=== PATIENT | female | born 1965 | race Caucasian/White ===

== ENCOUNTER → 2019-10-24 10:57 | Outpatient (CLI) | payer OTHER, SELFPAY ==
--- NOTE | ~2019-10-24 | CT_ITS ---
EXAMINATION: CT brain & sinus wo con EXAM DATE: 10/24/2019 11:32 INDICATION: Headache and dizziness, vomiting. Non-Hodgkin's lymphoma. TECHNIQUE: Spiral CT of the head obtained without contrast. Reformatted coronal, sagittal images rev iewed. Spiral CT of the sinuses was acquired in the axial plane. Coronal and sagittal reformatted im ages were also reviewed. The dose-length product (DLP) for this examination was 749.46 mGy-cm. The exposure was tailored according to patient size, and iterative reconstruction (ASIR) was used as kathy tional dose reduction technique. There is no prior study for comparison. FINDINGS: SINUS CT: The sinuses are normally developed. There is large left maxillary sinus mucous retention cyst. The ostiomeatal units are patent. There is no sinus wall thickening. There is mild to mode rate S-shaped nasal septal deviation. The mastoid air cells and middle ears are well aerated. Exte rnal auditory canals are patent. Soft tissue is unremarkable. HEAD CT: There are low-density bilateral extra-axial thin subdural fluid collections, containing mild ly proteinaceous fluid, consistent with subacute to chronic subdural hematomas. This is thicker on th e left side measuring up to 5 mm in thickness. There is mild to moderate cerebral atrophy which is he lping to accommodate the subdural hematomas. No herniation. There is no acute intraparenchymal hemorr karyna. No evidence of intraparenchymal brain mass lesion. No evidence of acute infarction. There is no mass effect or midline shift. There is no obstructive hydrocephalus suspected. There are no whitney rial acute fractures. IMPRESSION: 1. Thin bilateral extra-axial subdural hypodense fluid collections consistent with subacute to chron ic subdural hematomas. 2. Moderate-sized left maxillary sinus mucous retention cyst. No sinus air-fluid levels. I discussed extra-axial fluid collections with GIO Garcia at 10/24/2019 11:49 CDT. Reviewed, dictated and finalized at location B. IMPRESSION: 1. Thin bilateral extra-axial subdural hypodense fluid collections consistent with subacute to chronic subdural hematomas. 2. Moderate-sized left maxillary sinus mucous retention cyst. No sinus air-flu id levels. I discussed extra-axial fluid collections with GIO Garcia at 020 11:49 CDT.
== END ==
PROVIDERS: PCP Internal Medicine; Visit Provider Nurse Practitioner
DX: R51 Headache (principal); R42 Dizziness and giddiness; R11.10 Vomiting, unspecified
CPT/HCPCS: 70450; 70486

== ENCOUNTER 2024-02-13 13:41 | Outpatient (CLI) | payer OTHER, SELFPAY ==
--- NOTE | ~2024-02-13 | XR_ITS ---
XR heel LT min 2V Ordering provider: Lauren Prater, JULIAN History: . Bilateral heel pain . Comparison: None. FINDINGS: BONES: No acute fracture or dislocation. Calcaneus spur. JOINT SPACES: Well maintained. SOFT TISSUES: Normal. IMPRESSION: No acute osseous abnormality. Reviewed, dictated and finalized at location A.
--- NOTE | ~2024-02-13 | XR_ITS ---
XR heel RT min 2V Ordering provider: Lauren Prater, JULIAN History: . Bilateral heel pain . Comparison: None. FINDINGS: BONES: No acute fracture or dislocation. Calcaneal spur. JOINT SPACES: Well maintained. SOFT TISSUES: Normal. IMPRESSION: No acute osseous abnormality. Reviewed, dictated and finalized at location A.
== END 2024-02-13 13:42 ==
PROVIDERS: PCP Physician Assistant; Visit Provider Physician Assistant
DX: M79.671 Pain in right foot (principal); M79.672 Pain in left foot
CPT/HCPCS: 73650

== ENCOUNTER 2024-07-18 15:42 | Outpatient (CLI) | payer OTHER, SELFPAY ==
--- NOTE | ~2024-07-18 | US_ITS ---
RIGHT LOWER EXTREMITY VENOUS ULTRASOUND Ordering provider: Lauren Prater, JULIAN History: . Localized edema . Comparison: None. FINDINGS: --COMMON FEMORAL: Patent and free of thrombus. Normal compressibility, phasic flow and augmentation. --PROXIMAL SUPERFICIAL FEMORAL: Patent and free of thrombus. Normal compressibility, phasic flow and augmentation. --DISTAL SUPERFICIAL FEMORAL: Patent and free of thrombus. Normal compressibility, phasic flow and au gmentation. --POPLITEAL: Patent and free of thrombus. Normal compressibility, phasic flow and augmentation. --POSTERIOR TIBIAL: Patent and free of thrombus. Normal compressibility, phasic flow and augmentation . Great saphenous vein is not compressible. IMPRESSION: No deep vein thrombosis. Great saphenous vein is noncompressible suggestive of thrombosis. Reviewed, dictated and finalized at location A. ERN SCRATCHER
== END 2024-07-18 15:43 | disposition home or self-care (01) ==
LOC: ANHIMG 15:46
PROVIDERS: PCP Physician Assistant; Visit Provider Physician Assistant
DX: R60.0 Localized edema (principal)
CPT/HCPCS: 93971

== ENCOUNTER 2024-08-05 18:07 | Inpatient (IN) | payer OTHER, SELFPAY ==
[2024-08-05] VITALS (24 sets, daily range): BP systolic 57–116; BP diastolic 30–89; PULSE 116–136; RESP 17–37; TEMP 35.9–36.9; O2SAT 68–100
--- NOTE | ~2024-08-05 | US_ITS ---
EXAMINATION: US venous doppler [facility] DATE: 08/06/2024 17:28 INDICATION: Pulmonary embolus TECHNIQUE: Grayscale ultrasound images without and with compression and Doppler ultrasound images of the left lower extremity veins were obtained. Augmentation was deferred. COMPARISON: None. FINDINGS: The visualized portions of left common femoral vein, profunda (deep) femoral vein, femoral vein, popl iteal vein, peroneal veins, posterior tibial veins, and greater saphenous vein outflow are patent. IMPRESSION: 1. No deep venous thrombosis within the left lower extremity, as detailed above. Reviewed, dictated and finalized at location A. LER'S ASSISTANT IMPRESSION: 1. No deep venous thrombosis within the left lower extremity, as detailed aborashel rowell.
--- NOTE | ~2024-08-05 | XR_ITS ---
CHEST RADIOGRAPH CLINICAL HISTORY: Altered mental status, syncope . COMPARISON: None available TECHNIQUE: Single portable view of the chest. FINDINGS The cardiomediastinal silhouette is unremarkable. The lungs are clear. Visualized osseous structures and soft tissues are unremarkable. IMPRESSION: No focal infiltrate or effusion. Reviewed, dictated and finalized at location A. INE INSTALLER
--- NOTE | ~2024-08-05 | CT_ITS ---
History: Syncope PROCEDURE: CT head without contrast. COMPARISON: 10/24/2019 TECHNIQUE: Axial imaging of the head performed from the skull base to the vertex without IV contrast. Sagittal a nd coronal reformations obtained. DLP: 681 mGy-cm FINDINGS: The ventricles are normal in size, shape and position. There is no mass, mass effect or midline shift. There is no abnormal extra-axial fluid collection or intracranial hemorrhage. Visualized paranasal sinuses are clear. The mastoid air cells are well aerated. No acute displaced fractures within the overlying cranium. Impression: No acute intracranial hemorrhage or suspicious mass effect. Reviewed, dictated and finalized at location A. WAY HEAD TENDER Impression: No acute intracranial hemorrhage or suspicious mass effect.
--- NOTE | ~2024-08-05 | CT_ITS ---
EXAMINATION: CTA chest PE abdomen pel DATE: 08/05/2024 20:17 PROCESS DESIGNER INDICATION: Syncope TECHNIQUE: Computed tomographic angiography (CTA) of the chest was performed, along with multiple con tiguous axial images of the abdomen and pelvis with 100 mL Omnipaque-350 intravenous contrast. The do se-length product was 1939.03 mGy-cm. Maximum intensity projection 3D-reconstructions of the aorta an d other arteries were constructed by the technologist on a separate workstation. FINDINGS/OBSERVATIONS: PULMONARY ARTERIES: Multiple filling defects are detected within the bilateral pulmonary arteries. Within the left main pulmonary artery, extending into both the ascending and descending pulmonary art deanna branches. Within the right main pulmonary artery, extending into the ascending, middle and descending pulmonary arteries. THORACIC AORTA: No aneurysmal dilatation or dissection is present. The great vessels are intact LUNGS: Trace right basilar atelectasis. The remainder of the lungs are clear. MEDIASTINUM: No morphologically suspicious or pathologically enlarged lymph nodes are identified with in the mediastinum or bilateral axilla. Extensive supraclavicular lymphadenopathy with infiltration of surrounding soft tissues. BONES OF THE CHEST: No acute fracture. No significant degenerative disease. No lytic or blastic lesions. HEART: Right heart strain is detected with an RV to LV ratio of 1.5. The heart is not enlarged. No pericardial effusion is present. LIVER: Innumerable well-circumscribed areas of fluid attenuation are identified within the liver along with periportal edema. GALLBLADDER AND BILIARY SYSTEM: The gallbladder is distended, without calcified stones PANCREAS: The pancreas enhances homogeneously without ductal dilatation. SPLEEN: The spleen enhances homogeneously and is not enlarged measuring 6 cm in longitudinal dimension. KIDNEYS: The bilateral kidneys enhance symmetrically without hydronephrosis or renal calculi. ADRENAL GLANDS: Unremarkable. GASTROINTESTINAL TRACT: Mural thickening and edema within multiple loops of nondilated small bowel, likely secondary to venou s congestion. APPENDIX: The air-filled appendix is of normal caliber (axial series, images 113-120). VASCULATURE: Left common femoral vein catheter. The right common iliac vein fills via collateralization from the posterior pelvis. The right common femoral vein is enlarged with surrounding inflammatory change, consistent with throm bosis. LYMPH NODES: Bulky pathologically enlarged lymph nodes within the retroperitoneum. Large mass along the right pelvic sidewall correlating to splaying the vasculature, likely the source of venous obstruction within the right lower extremity (and just cranial to the area of prior ultras ound dated 07/18/2024). This mass measures 11 x 7 x 8.2 cm (anterior to posterior x medial to lateral x cranial to caudal dim ension), with central decreased attenuation, likely necrosis. PELVIC STRUCTURES: The bladder is decompressed with a Quinones catheter, limiting its evaluation. The uterus is anteverted and anteflexed. BODY WALL AND MUSCULOSKELETAL: Small fat-containing umbilical hernia. No significant degenerative disease within the lower thoracic or lumbosacral spine. No lytic or blastic lesions. IMPRESSION: Bilateral pulmonary emboli with significant right heart strain. 11 cm likely necrotic mass within the right hemipelvis. Significant retroperitoneal and mesenteric lymphadenopathy. Periportal edema with venous congestion in the mesentery. Innumerable foci of fluid and attenuation within the liver These findings were discussed with RADHA Phan in the ER at 8:20 PM on 08/05/2024. Reviewed, dictated and finalized at location A. ESS DESIGNER
--- NOTE | 2024-08-05 18:17 | ECG_ITS ---
Test Date: 2024-08-05 18:19:45 Measurements Intervals [place] Rate: 125 P: 63 NE: 146 QRS: 95 QRSD: 99 T: 16 QT: 390 QTc: 564 Interpretive Statements SINUS TACHYCARDIA BORDERLINE RIGHT AXIS DEVIATION [QRS AXIS > 90] INCOMPLETE RIGHT BUNDLE BRANCH BLOCK [90+ ms QRS DURATION, TERMINAL R IN V1/V2, 40+ ms S IN I/aVL/V4/V5/V6] SEPTAL MYOCARDIAL INFARCTION , PROBABLY OLD [40+ ms Q WAVE IN V1/V2] ST DEPRESSION, CONSIDER SUBENDOCARDIAL INJURY [0.1+ mV ST DEPRESSION] No previous ECG available for comparison Electronically Signed On 08-06-2024 10:40:37 TRAVEL COORDINATOR by Thomas Mclean M.D.
[2024-08-05] MEDS: SODIUM CHLORIDE 0.9% IV 1,000 ML 999 ML IV CONT ×3 (18:20→20:25)
[2024-08-05 18:48] LABS: Basophils Absolute Auto 0.1 K/mm3 (0.0-0.1); Basophils Percent Auto 0.6 % (0.2-1.2); Eosinophils Percent Auto 0.2 % (0-4.4); Hematocrit 36.7 % (37.0-47.0); Hemoglobin 12.2 g/dL (12.0-15.0); Immature Granulocyte Absolute 0.04 K/mm3 (0.00-0.031); Immature Granulocyte Percent A 0.3 % (0-0.5); Lymphocytes Absolute Auto 4.14 K/mm3 (0.9-3.2); Lymphocytes Percent Auto 32.6 % (18.3-44.2); Mean Corpuscular HGB Conc 33.2 g/dl (32-36); Mean Corpuscular Volume 90.4 fl (80-100); Mean Platelet Volume 10.5 fl (7.4-10.4); Monocytes Absolute Auto 1.1 K/mm3 (0.1-0.6); Monocytes Percent Auto 8.3 % (2.6-8.5); Neutrophils Absolute Auto 7.4 K/mm3 (1.3-6.7); Platelet Count Result 195 k/mm3 (150-375); Red Blood Count 4.06 M/mm3 (4.2-5.4); Red Cell Distribution Width 13.1 % (11.5-14.5); White Blood Count 12.7 K/mm3 (4.5-10.0)
[2024-08-05 18:58] LABS: INR 1.5
[2024-08-05 18:59] LABS: Partial Thromboplastin Time 37.9 Seconds (22.3-36.8)
[2024-08-05 19:01] LABS: Alanine Aminotransferase 48 U/L (6-35); Albumin Level 3.6 g/dL (3.5-5.1); Alkaline Phosphatase 71 U/L (38-126); Anion Gap 16 mmol/L (4-12); Aspartate Amino Transferase 88 U/L (14-36); Bilirubin,Total 0.6 mg/dL (0.2-1.3); Blood Urea Nitrogen 9 mg/dL (7-17); Calcium 9.5 mg/dL (8.4-10.2); Carbon Dioxide 21 mmol/L (22-30); Chloride 103 mmol/L (98-107); Estimated Glomerular Filt Rate 55; Glucose 225 mg/dL (65-110); Lipase 259 U/L (23-300); Potassium 2.8 mmol/L (3.4-5.0); Sodium 140 mmol/L (137-145)
[2024-08-05 19:02] LABS: Lactic Acid Reflex 7.1 mmol/L (0.7-2.0)
--- NOTE | 2024-08-05 19:10 | ED_ITS ---
HPI - General Adult General Chief complaint: Syncope Stated complaint: syncope Time Seen by Provider: 08/05/24 18:07 History of Present Illness HPI narrative: Patient is a 59-year-old female who presents emergency department with chief complaint of syncopal episode. The patient apparently was at home and was going to the bathroom had a syncopal episode was having bouts of diarrhea and EMS was called. The patient had another syncopal episode was hypotensive upon arrival the emergency department the patient was profoundly hypotensive and was started on fluid resuscitation. The patient reports that she has history of a B-cell lymphoma and is scheduled to have a biopsy of [place] later this week Related Data Home Medications ?Medication ?Instructions ?Recorded ?Confirmed ?Last Taken ?Type ascorbate calcium (vitamin C) 500 500 mg PO DAILY 04/07/21 04/07/21 Unknown History mg tablet cholecalciferol (vitamin D3) 125 125 mcg PO DAILY 04/07/21 04/07/21 Unknown History mcg (5,000 unit) capsule turmeric 100 mg-beatriz 150 cap PO 04/07/21 04/07/21 Unknown History mg-olive 50 mg-oreg 150 mg-capryl capsule Allergies Allergy/AdvReac Type Severity Reaction Status Date / Time Penicillins Allergy Mild Rash Verified 04/07/21 07:22 gluten AdvReac lowers iron Verified 04/07/21 07:22 Review of Systems 2 Review of Systems: A 10 system review of systems was completed on the patient and is negative except for what is stated in the HPI. Nursing and ancillary documentation was reviewed. [facility] Family History Family History Mother Family history of diabetes mellitus in first degree relative Patient's mother is in good health Father Family history of diabetes mellitus in first degree relative Other Family history of coronary artery disease Social History Social History Smoking status: Never smoker Second hand tobacco smoke exposure: No Alcohol intake: current Drinks per week: 2 Substance use: never Exam 2 Narrative: GENERAL: Ill-appearing, well-nourished, and in severe acute distress. HEAD: Normocephalic, atraumatic. EYES: PERRLA and EOMI. ENT: Nares clear, no rhinorrhea or epistaxis. Mucous membranes moist. Lips are dusky NECK: Supple. CHEST: Clear to auscultation. No respiratory distress. HEART: Tachycardic rate and regular rhythm. No murmur heard. Normal peripheral pulses. ABDOMEN: Soft, nontender, nondistended, normal active bowel sounds. EXTREMITIES: Normal range of motion. No edema. SKIN: Warm, dry, no rash. NEURO: No focal deficits. Alert and oriented x3. Slow to respond PSYCH: Normal mood and affect. Course Vital Signs Vital signs: Vital Signs Temperature 36.0 C L 08/05/24 18:00 Pulse Rate 136 H 08/05/24 18:00 Respiratory Rate 28 H 08/05/24 18:00 Blood Pressure 57/30 L 08/05/24 18:00 Pulse Oximetry 86 L 08/05/24 18:00 Oxygen Delivery Room Air 08/05/24 18:00 Temperature 37.7 C H 08/06/24 11:48 Pulse Rate 97 08/06/24 11:48 Respiratory Rate 16 08/06/24 11:48 Blood Pressure 113/83 08/06/24 11:48 Pulse Oximetry 97 08/06/24 11:48 Oxygen Delivery Nasal Cannula 08/05/24 18:20 Oxygen Flow Rate 3 08/05/24 18:20 Procedures Central Line Placement Left Femoral: Central Line Date: 08/05/24 Central Line Time: 19:11 Performed Emergently - Given emergent patient condition, temporal constraints may have precluded informed consent.: Yes Time Out Performed: Yes Medical Decision Making MDM Narrative Medical decision making narrative: Differential diagnosis includes GI bleed, syncope, dehydration, pulmonary embolism The patient was initially hypotensive and tachycardic. Fluid resuscitation was initiated the patient received 30 per kilos of the normal saline boluses the patient was still hypotensive a central line was placed in the left femoral emergently with verbal permission from the patient. Levophed was started. Patient was tachycardic and complaining of back pain CTA of the chest with abdomen pelvis CT was obtained that showed evidence of pulmonary emboli with right heart strain. The patient did have a slightly elevated troponin anticoagulant therapy was initiated. Patient is followed at [facility] case was discussed with the [facility] transfer center currently there are no beds available at [facility] the patient is on the list for an ICU bed and they will be continuing work for placement. Patient's vitals have improved significantly patient has a blood pressure 116/81 heart rate of 117 Vital Signs Vital Signs: Vital Signs Temperature 36.0 C L 08/05/24 18:00 Pulse Rate 136 H 08/05/24 18:00 Respiratory Rate 28 H 08/05/24 18:00 Blood Pressure 57/30 L 08/05/24 18:00 Pulse Oximetry 86 L 08/05/24 18:00 Oxygen Delivery Room Air 08/05/24 18:00 Temperature 37.7 C H 08/06/24 11:48 Pulse Rate 97 08/06/24 11:48 Respiratory Rate 16 08/06/24 11:48 Blood Pressure 113/83 08/06/24 11:48 Pulse Oximetry 97 08/06/24 11:48 Oxygen Delivery Nasal Cannula 08/05/24 18:20 Oxygen Flow Rate 3 08/05/24 18:20 Lab Data 08/06/24 05:30 08/05/24 18:39 Labs: Lab Results 08/05/24 08/05/24 08/05/24 Range/Units 18:35 18:39 19:05 WBC 12.7 H (4.5-10.0) K/mm3 RBC 4.06 L (4.2-5.4) M/mm3 Hgb 12.2 (12.0-15.0) g/dL Hct 36.7 L (37.0-47.0) % MCV 90.4 (80-100) fl MCH 30.0 (26-34) pg MCHC 33.2 (32-36) g/dl RDW 13.1 (11.5-14.5) % Plt Count 195 (150-375) k/mm3 MPV 10.5 H (7.4-10.4) fl Immature Gran % (Auto) 0.3 (0-0.5) % Neut % (Auto) 58.0 (45.5-73.1) % Lymph % (Auto) 32.6 (18.3-44.2) % [place] % (Auto) 8.3 (2.6-8.5) % Eos % (Auto) 0.2 (0-4.4) % Baso % (Auto) 0.6 (0.2-1.2) % Lymph # (Auto) 4.14 H (0.9-3.2) K/mm3 [place] # (Auto) 1.1 H (0.1-0.6) K/mm3 Eos # (Auto) 0.0 (0-0.3) K/mm3 Baso # (Auto) 0.1 (0.0-0.1) K/mm3 Abs Immat Gran (auto) 0.04 H (0.00-0.031) K/mm3 Absolute Neuts (auto) 7.4 H (1.3-6.7) K/mm3 Absolute Nucleated RBC 0.000 (0.0-0.012) K/mm3 Total Counted Neutrophils % (Manual) (46-73) % Band Neutrophils % (0-6) % Lymphocytes % (Manual) (18-44) % Monocytes % (Manual) (3-9) % Nucleated RBC % 0.0 (0.0-0.2) % Abs Neuts (Manual) (1.7-7.2) K/mm3 Abs Lymphs (Manual) (1.1-4.5) K/mm3 Abs Monocytes (Manual) (0.1-0.90) K/mm3 Platelet Estimate (Adequate) Schistocytes PT 18.0 H (11.1-14.7) Seconds INR 1.5 APTT 37.9 H (22.3-36.8) Seconds Sodium 140 (137-145) mmol/L Potassium 2.8 L* (3.4-5.0) mmol/L Chloride 103 (98-107) mmol/L Carbon Dioxide 21 L (22-30) mmol/L Anion Gap 16 H (4-12) mmol/L BUN 9 (7-17) mg/dL Creatinine 1.02 H (0.7-1.0) mg/dL Estim Creat Clear Calc Not Reportable Estimated GFR 55 L (59 - ) Glucose 225 H (65-110) mg/dL Lactic Acid 7.1 H* (0.7-2.0) mmol/L Calcium 9.5 (8.4-10.2) mg/dL Magnesium 2.0 (1.6-2.3) mg/dL Total Bilirubin 0.6 (0.2-1.3) mg/dL AST 88 H (14-36) U/L ALT 48 H (6-35) U/L Alkaline Phosphatase 71 (38-126) U/L Troponin I 0.575 H* (0.000-0.034) ng/mL NT-Pro-B Natriuret Pep 640 H (19.9-100) pg/mL Total Protein 6.0 L (6.3-8.2) g/dL Albumin 3.6 (3.5-5.1) g/dL Lipase 259 (23-300) U/L Procalcitonin 0.1 ng/mL Urine Color Yellow (Yellow) Urine Appearance Cloudy H (Clear) Urine pH 7.5 (5.0-9.0) Ur Specific [place] 1.010 (1.001-1.035) Urine Protein 3+ H (Negative) mg/dL Urine Glucose (UA) Negative (Negative) mg/dL Urine Ketones Negative (Negative) mg/dL Ur Blood (Man) Negative (Negative) Urine Nitrate Negative (Negative) Urine Bilirubin Negative (Negative) Urine Urobilinogen 0.2 (<2.0) mg/dL Leukocyte Esterase Rfl Negative (Negative) LORENZO/UL Urine RBC 11-20 H (0-2) /hpf Urine WBC 11-20 H (0-3) /hpf Ur Squamous Epith Cells None seen (Few) /hpf Urine Bacteria Rare /hpf Urine Casts >20 Hyaline Casts Present (None) /lpf Influenza A (RT-PCR) Negative (Negative) Influenza B (RT-PCR) Negative (Negative) RSV (RT-PCR) Negative (Negative) SARS-CoV-2 RNA (RT-PCR) Negative (Negative) Blood Type O Positive Antibody Screen Negative 08/05/24 08/06/24 08/06/24 Range/Units 21:57 03:10 05:30 WBC 17.3 H 11.9 H (4.5-10.0) K/mm3 RBC 4.38 4.19 L (4.2-5.4) M/mm3 Hgb 13.1 12.6 (12.0-15.0) g/dL Hct 39.6 36.9 L (37.0-47.0) % MCV 90.4 88.1 (80-100) fl MCH 29.9 30.1 (26-34) pg MCHC 33.1 34.1 (32-36) g/dl RDW 13.2 13.3 (11.5-14.5) % Plt Count 159 155 (150-375) k/mm3 MPV 9.8 10.0 (7.4-10.4) fl Immature Gran % (Auto) Not Reportable 0.3 (0-0.5) % Neut % (Auto) Not Reportable 82.3 H (45.5-73.1) % Lymph % (Auto) Not Reportable 8.7 L (18.3-44.2) % [place] % (Auto) Not Reportable 8.5 (2.6-8.5) % Eos % (Auto) Not Reportable 0.0 (0-4.4) % Baso % (Auto) Not Reportable 0.2 (0.2-1.2) % Lymph # (Auto) Not Reportable 1.03 (0.9-3.2) K/mm3 [place] # (Auto) Not Reportable 1.0 H (0.1-0.6) K/mm3 Eos # (Auto) Not Reportable 0.0 (0-0.3) K/mm3 Baso # (Auto) Not Reportable 0.0 (0.0-0.1) K/mm3 Abs Immat Gran (auto) Not Reportable 0.04 H (0.00-0.031) K/mm3 Absolute Neuts (auto) Not Reportable 9.8 H (1.3-6.7) K/mm3 Absolute Nucleated RBC Not Reportable 0.000 (0.0-0.012) K/mm3 Total Counted 100 Neutrophils % (Manual) 75 H (46-73) % Band Neutrophils % 12 H (0-6) % Lymphocytes % (Manual) 9.0 L (18-44) % Monocytes % (Manual) 4 (3-9) % Nucleated RBC % Not Reportable 0.0 (0.0-0.2) % Abs Neuts (Manual) 15.05 H (1.7-7.2) K/mm3 Abs Lymphs (Manual) 1.55 (1.1-4.5) K/mm3 Abs Monocytes (Manual) 0.69 (0.1-0.90) K/mm3 Platelet Estimate Adequate (Adequate) Schistocytes None seen PT 18.7 H (11.1-14.7) Seconds INR 1.5 APTT > 200.0 H* > 200.0 H* (22.3-36.8) Seconds Sodium (137-145) mmol/L Potassium (3.4-5.0) mmol/L Chloride (98-107) mmol/L Carbon Dioxide (22-30) mmol/L Anion Gap (4-12) mmol/L BUN (7-17) mg/dL Creatinine (0.7-1.0) mg/dL Estim Creat Clear Calc Estimated GFR (59 - ) Glucose (65-110) mg/dL Lactic Acid 5.1 H* (0.7-2.0) mmol/L Calcium (8.4-10.2) mg/dL Magnesium (1.6-2.3) mg/dL Total Bilirubin (0.2-1.3) mg/dL AST (14-36) U/L ALT (6-35) U/L Alkaline Phosphatase (38-126) U/L Troponin I 0.743 H* D (0.000-0.034) ng/mL NT-Pro-B Natriuret Pep (19.9-100) pg/mL Total Protein (6.3-8.2) g/dL Albumin (3.5-5.1) g/dL Lipase (23-300) U/L Procalcitonin ng/mL Urine Color (Yellow) Urine Appearance (Clear) Urine pH (5.0-9.0) Ur Specific [place] (1.001-1.035) Urine Protein (Negative) mg/dL Urine Glucose (UA) (Negative) mg/dL Urine Ketones (Negative) mg/dL Ur Blood (Man) (Negative) Urine Nitrate (Negative) Urine Bilirubin (Negative) Urine Urobilinogen (<2.0) mg/dL Leukocyte Esterase Rfl (Negative) LORENZO/UL Urine RBC (0-2) /hpf Urine WBC (0-3) /hpf Ur Squamous Epith Cells (Few) /hpf Urine Bacteria /hpf Urine Casts Hyaline Casts (None) /lpf Influenza A (RT-PCR) (Negative) Influenza B (RT-PCR) (Negative) RSV (RT-PCR) (Negative) SARS-CoV-2 RNA (RT-PCR) (Negative) Blood Type Antibody Screen 08/06/24 Range/Units 10:50 WBC (4.5-10.0) K/mm3 RBC (4.2-5.4) M/mm3 Hgb (12.0-15.0) g/dL Hct (37.0-47.0) % MCV (80-100) fl MCH (26-34) pg MCHC (32-36) g/dl RDW (11.5-14.5) % Plt Count (150-375) k/mm3 MPV (7.4-10.4) fl Immature Gran % (Auto) (0-0.5) % Neut % (Auto) (45.5-73.1) % Lymph % (Auto) (18.3-44.2) % [place] % (Auto) (2.6-8.5) % Eos % (Auto) (0-4.4) % Baso % (Auto) (0.2-1.2) % Lymph # (Auto) (0.9-3.2) K/mm3 [place] # (Auto) (0.1-0.6) K/mm3 Eos # (Auto) (0-0.3) K/mm3 Baso # (Auto) (0.0-0.1) K/mm3 Abs Immat Gran (auto) (0.00-0.031) K/mm3 Absolute Neuts (auto) (1.3-6.7) K/mm3 Absolute Nucleated RBC (0.0-0.012) K/mm3 Total Counted Neutrophils % (Manual) (46-73) % Band Neutrophils % (0-6) % Lymphocytes % (Manual) (18-44) % Monocytes % (Manual) (3-9) % Nucleated RBC % (0.0-0.2) % Abs Neuts (Manual) (1.7-7.2) K/mm3 Abs Lymphs (Manual) (1.1-4.5) K/mm3 Abs Monocytes (Manual) (0.1-0.90) K/mm3 Platelet Estimate (Adequate) Schistocytes PT (11.1-14.7) Seconds INR APTT Pending (22.3-36.8) Seconds Sodium (137-145) mmol/L Potassium (3.4-5.0) mmol/L Chloride (98-107) mmol/L Carbon Dioxide (22-30) mmol/L Anion Gap (4-12) mmol/L BUN (7-17) mg/dL Creatinine (0.7-1.0) mg/dL Estim Creat Clear Calc Estimated GFR (59 - ) Glucose (65-110) mg/dL Lactic Acid (0.7-2.0) mmol/L Calcium (8.4-10.2) mg/dL Magnesium (1.6-2.3) mg/dL Total Bilirubin (0.2-1.3) mg/dL AST (14-36) U/L ALT (6-35) U/L Alkaline Phosphatase (38-126) U/L Troponin I (0.000-0.034) ng/mL NT-Pro-B Natriuret Pep (19.9-100) pg/mL Total Protein (6.3-8.2) g/dL Albumin (3.5-5.1) g/dL Lipase (23-300) U/L Procalcitonin ng/mL Urine Color (Yellow) Urine Appearance (Clear) Urine pH (5.0-9.0) Ur Specific [place] (1.001-1.035) Urine Protein (Negative) mg/dL Urine Glucose (UA) (Negative) mg/dL Urine Ketones (Negative) mg/dL Ur Blood (Man) (Negative) Urine Nitrate (Negative) Urine Bilirubin (Negative) Urine Urobilinogen (<2.0) mg/dL Leukocyte Esterase Rfl (Negative) LORENZO/UL Urine RBC (0-2) /hpf Urine WBC (0-3) /hpf Ur Squamous Epith Cells (Few) /hpf Urine Bacteria /hpf Urine Casts Hyaline Casts (None) /lpf Influenza A (RT-PCR) (Negative) Influenza B (RT-PCR) (Negative) RSV (RT-PCR) (Negative) SARS-CoV-2 RNA (RT-PCR) (Negative) Blood Type Antibody Screen Critical Care Time Critical Care Time Critical Care Time: Yes Total Critical Care Time: 75 Discharge Plan Discharge Clinical Impression: Pulmonary embolism, bilateral, Acute cor pulmonale, Elevated troponin, Syncope Patient Disposition: Acute Care Hospital Condition: Guarded Prognosis Patient Language: Croatian Prescriptions: No Action [id number]-sett-frtxl-oreg-capry 100 mg-150 mg- 50 mg-150 mg capsule PO ascorbate calcium (vitamin C) 500 mg tablet 500 mg PO DAILY cholecalciferol (vitamin D3) 125 mcg (5,000 unit) capsule 125 mcg PO DAILY doxycycline hyclate 100 mg capsule 100 mg PO BID Qty: 20 0RF Follow-up/Referrals: Menossi,JULIAN Aguilar [Primary Care Provider] -
[2024-08-05 19:14] LABS: NT Pro B Type Natriuretic Pept 640 pg/mL (19.9-100); Troponin I 0.575 ng/mL (0.000-0.034)
[2024-08-05 19:24] LABS: Influenza A QL RT-PCR Negative (Negative); Influenza B QL RT-PCR Negative (Negative); RSV RNA, RT-PCR Negative (Negative); SARS-CoV-2 RNA PCR Negative (Negative)
[2024-08-05] MEDS: NOREPINEPHRINE 8 MG/D5W 250 ML 8 MG/250 ML BAG 9.38 MG IV CONT (19:25)
[2024-08-05 19:29] LABS: Procalcitonin 0.1 ng/mL
[2024-08-05 19:39] LABS: Add Urine Microscopic? YES; Appearance Urine Cloudy (Clear); Bacteria Urine Rare /hpf; Bilirubin Urine Negative (Negative); Blood Urine Negative (Negative); Color Urine Yellow (Yellow); Glucose Urine UA Negative (Negative); Hyaline Casts Urine Present /lpf; Ketones Urine Negative (Negative); Leukocyte Esterase Ur Negative LEU/UL (Negative); Nitrate Urine Negative (Negative); Non Pathogenic Casts >20; Protein Urine 3+ mg/dL (Negative); Squamous Epithelial Cell Urine None Seen /hpf (Few); Urobilinogen Urine 0.2 mg/dL (<2.0); pH Urine 7.5 (5.0-9.0)
[2024-08-05] MEDS: ONDANSETRON INJ 4 MG/2 ML VIAL IV PUSH (21:16)
[2024-08-05] MEDS: HEPARIN SODIUM 5,000 UNITS/ML VIAL 6000 UNITS IV PUSH (21:16)
[2024-08-05] MEDS: HEPARIN SOD/D5W 100 UNITS/ML 25,000 UNITS/250 ML BAG 13 UNITS IV CONT (21:16)
[2024-08-05] MEDS: KCL 20 MEQ/SW 100 ML 100 ML 50 MEQ IVPB (21:23)
[2024-08-05 21:45] LABS: Reflex Lactic Acid Yes or No Add Lactic
[2024-08-05 22:03] LABS: Hematocrit 39.6 % (37.0-47.0); Hemoglobin 13.1 g/dL (12.0-15.0); Mean Corpuscular HGB Conc 33.1 g/dl (32-36); Mean Corpuscular Hemoglobin 29.9 pg (26-34); Mean Corpuscular Volume 90.4 fl (80-100); Mean Platelet Volume 9.8 fl (7.4-10.4); Platelet Count Result 159 k/mm3 (150-375); Red Blood Count 4.38 M/mm3 (4.2-5.4); Red Cell Distribution Width 13.2 % (11.5-14.5); White Blood Count 17.3 K/mm3 (4.5-10.0)
[2024-08-05 22:14] LABS: INR 1.5; Prothrombin Time 18.7 Seconds (11.1-14.7)
[2024-08-05 22:19] LABS: Band Neutrophils Percent 12 % (0-6); Lactic Acid 5.1 mmol/L (0.7-2.0); Lymphocytes Absolute Manual 1.55 K/mm3 (1.1-4.5); Monocytes Absolute Manual 0.69 K/mm3 (0.1-0.90); Monocytes Percent Manual 4 % (3-9); Neutrophils Absolute Manual 15.05 K/mm3 (1.7-7.2); Neutrophils Percent Manual 75 % (46-73); Platelet Estimate Adequate (Adequate); Schistocytes None Seen; Total Cells Counted 100
[2024-08-05 22:34] LABS: Troponin I 0.743 ng/mL (0.000-0.034)
[2024-08-05 23:31] LABS: Partial Thromboplastin Time > 200.0 Seconds (22.3-36.8)
[2024-08-06] VITALS (42 sets, daily range): BP systolic 98–139; BP diastolic 75–102; PULSE 91–110; RESP 14–27; TEMP 37.4–37.9; O2SAT 96–100; BMI 27.4
[2024-08-06 03:47] LABS: Partial Thromboplastin Time > 200.0 Seconds (22.3-36.8)
--- NOTE | 2024-08-06 04:04 | PC.NURSE ---
0350: Lab called patient companion with critical result of pt PTT blood work. Pt ptt was greater than 200 so this RN followed titration protocols and held inufsion at this time and will resume in 1 hr and decrease rate by 2.
[2024-08-06 05:37] LABS: Basophils Percent Auto 0.2 % (0.2-1.2); Hematocrit 36.9 % (37.0-47.0); Hemoglobin 12.6 g/dL (12.0-15.0); Immature Granulocyte Absolute 0.04 K/mm3 (0.00-0.031); Immature Granulocyte Percent A 0.3 % (0-0.5); Lymphocytes Absolute Auto 1.03 K/mm3 (0.9-3.2); Lymphocytes Percent Auto 8.7 % (18.3-44.2); Mean Corpuscular HGB Conc 34.1 g/dl (32-36); Mean Corpuscular Hemoglobin 30.1 pg (26-34); Mean Corpuscular Volume 88.1 fl (80-100); Monocytes Percent Auto 8.5 % (2.6-8.5); Neutrophils Absolute Auto 9.8 K/mm3 (1.3-6.7); Neutrophils Percent Auto 82.3 % (45.5-73.1); Platelet Count Result 155 k/mm3 (150-375); Red Blood Count 4.19 M/mm3 (4.2-5.4); Red Cell Distribution Width 13.3 % (11.5-14.5); White Blood Count 11.9 K/mm3 (4.5-10.0)
--- NOTE | 2024-08-06 08:39 | PC.NURSE ---
spoke to transfer center, no immediate beds available. noted fever in VS obtained order for PRN Tylenol
[2024-08-06] MEDS: ACETAMINOPHEN 325 MG TABLET 650 MG PO ×2 (09:04→15:11)
--- NOTE | 2024-08-06 09:42 | PC.NURSE ---
Dr. Fuentes made aware of pt's BP of 130/94. per Dr. Fuentes, discontinued Norepinephrine drip. NOBLE.
[2024-08-06 12:16] LABS: Partial Thromboplastin Time 180.1 Seconds (22.3-36.8)
--- NOTE | 2024-08-06 14:29 | ECHO_ITS ---
Patient Info Name: Tiffanie Guardado Age: 59 years : 1965 Gender: Female Ht: 68 in Wt: 201 lbs BSA: 2.12 m2 HR: 96 bpm BP: 112 / 76 mmHg Heart Rhythm: Sinus Rhythm Technical Quality: Fair Exam Date: 08/06/2024 3:49 PM Exam Location: Echo Lab Patient Status: Inpatient Admit Date: 08/06/2024 Staff Ordering Physician: Jaspal Marshall MD Director Of Publications: Yasmin Rinaldi RDCS Attending Provider: Steffi Horvath MD Referring Physician: Joanna HAWKINS; Exam Type: CA echo doppler color flow Study Info Indications - Right heart strain Complete two-dimensional, color flow and Doppler transthoracic echocardiogram is performed. Summary 1. Complete two-dimensional, color flow and Doppler transthoracic echocardiogram is performed. 2. Normal left ventricular size with vigorous systolic function. 3. Small amount of tricuspid regurgitation otherwise no significant valvular disease. 4. Mild septal flattening in the short axis view. 5. [id number] right ventricular enlargement with reduced systolic function. 6. TR jet estimates RV systolic pressure at 37 mmHg. Left Ventricle Left ventricular chamber dimension is normal. Left ventricular systolic function is normal, estimated at 65-70%. The left ventricular diastolic function is normal. Right Ventricle Right ventricular chamber dimension is mildly enlarged. Right ventricular systolic function is reduced. Left Atria Left atrial chamber dimension is normal. Right Atria Right atrial chamber dimension is mildly enlarged. Aortic Valve The aortic valve is normal. Pulmonic Valve The pulmonic valve is normal. Mitral Valve The mitral valve has normal leaflets. Tricuspid Valve The tricuspid valve leaflets are normal. There is mild tricuspid valve regurgitation. Mild pulmonary hypertension, estimated pulmonary arterial systolic pressure is 37 mmHg. Pericardium/Pleural The pericardium appears normal. Aorta The aortic root size at the sinus of Valsalva is normal. Left Ventricular Outflow Tract Name Value Normal LVOT 2D LVOT Diameter 2.0 cm LVOT Doppler LVOT Peak Gradient 3 mmHg LVOT Mean Gradient 2 mmHg LVOT VTI 11 cm LVOT VTI/AV VTI Ratio 0.8 LVOT Stroke Volume 33 ml LVOT CO 3.1 l/min LVOT CI 1.5 l/min/m2 Pulmonic Valve Name Value Normal RVOT Doppler RVOT Peak Gradient 1 mmHg PV Doppler PV Peak Gradient 3 mmHg Mitral Valve Name Value Normal MV Doppler MV Decel [place] 234 cm/s2 MV PHT 59 ms MV Area (PHT) 3.7 cm2 4.0-5.0 MV Diastolic Function MV E Peak Velocity 48 cm/s MV A Peak Velocity 62 cm/s MV E/A 0.8 MV Decel Time 205 ms MV Annular TDI MV E/e' (Septal) 5.5 <=8.0 MV E/e' (Lateral) 5.8 <=8.0 MV E/e' (Average) 5.7 Tricuspid Valve Name Value Normal TV Regurgitation Doppler TR Peak Velocity 260 cm/s TR Peak Gradient 27 mmHg Estimated PAP/RSVP RA Pressure 10 mmHg <=5 PA Systolic Pressure 37 mmHg <36 RV Systolic Pressure 37 mmHg <36 Aorta Name Value Normal Ascending Aorta Ao Root Diameter (MM) 2.7 cm Ao Root Diam Index (MM) 1.3 cm/m2 Aortic Valve Name Value Normal AV Doppler AV Peak Velocity 118 cm/s AV Peak Gradient 6 mmHg AV Mean Gradient 3 mmHg AV VTI 14 cm AV Area (Cont Eq VTI) 2.3 cm2 >=3.0 AV Area (Cont Eq Lance) 2.3 cm2 AV Regurgitation 2D LVOT Area 3.0 cm2 Ventricles Name Value Normal LV Dimensions 2D/MM IVS Diastolic Thickness (2D) 1.2 cm 0.6-1.0 LVID Diastole (2D) 3.5 cm 3.8-5.2 LVIW Diastolic Thickness (2D) 1.0 cm 0.6-0.9 LVID Systole (2D) 2.1 cm 2.2-3.5 LVOT Diameter 2.0 cm LV Mass (2D Cubed) 115.02 g 67.00-162.00 LV Mass Index (2D Cubed) 54 g/m2 43-95 Relative Wall Thickness (2D) 0.58 LV Fractional Shortening/Ejection Fraction 2D/MM LV Fractional Shortening (2D) 39 % 27-45 LV EF (2D Teicholz) 71 % 54-74 LV Diastolic Volume (4C MOD) 41 ml LV EF (4C MOD) 69 % LV Diastolic Volume (2C MOD) 23 ml LV EF (2C MOD) 67 % LV Diastolic Volume (BP MOD) 31 ml 46-106 LV Diastolic Volume Index (BP MOD) 15 ml/m2 29-61 LV Systolic Volume (BP MOD) 11 ml 14-42 LV Systolic Volume Index (BP MOD) 5 ml/m2 8-24 LV EF (BP MOD) 66 % 54-74 LV Diastolic Length (4C) 7.2 cm LV Systolic Length (4C) 6.1 cm LV Stroke Volume (4C MOD) 28 ml Atria Name Value Normal LA Dimensions LA Dimension (MM) 2.7 cm 2.7-3.8 LA Volume (4C A-L) 12 ml LA Volume (BP A-L) 17 ml RA Dimensions RA Area (4C) 16.7 cm2 <=18.0 Report Signatures
--- NOTE | 2024-08-06 15:00 | P.HP_ITS ---
H&P: HPI History of Present Illness Date/Time: 08/06/24 15:00 Chief Complaint: Syncope Narrative: 59 y/o F presents here with syncope with PMH of B-cell lymphoma (2017, [place] in [place]). The patient presents here from home via EMS for further evaluation of syncope. The patient presented to the emergency department on 08/05/2024. The patient had 3 episodes of lightheadedness and shortness of breath. She initially contributed symptoms to dehydration and lack of food. She had been fasting for a few days, would go 24-36 hours and would then eat a small meal and repeat the cycle. Fast was an attempt to detox. Patient used the restroom. When she stood up she became dizzy and lightheaded. Patient then had a syncopal episode. Patient's heard a loud thump and upon his arrival she was still unco nscious. He reports that she tried to wake up but would only have brief periods of consciousness. He estimates this lasted for approximately 30 minutes. Post- syncope she had an episode of nausea and vomiting x1. EMS was called by the patient's . The patient had a 2nd syncopal episode upon arrival to the emergency department. She was found to be profoundly hypotensive, 57/30. Patient reports she has had 3 flights in June. After these flights she noted her right lower extremity was slightly swollen. Denies tobacco use, hormone use, control, or recent surgeries. No previously known cancer to patient beyond her history of lymphoma. Currently following at [facility]. She was aware she had a mass in her pelvis and had previously undergone a biopsy that was inconclusive. Patient was scheduled to have an outpatient biopsy today, however due to current admission she was unable to. The patient is currently post-menopausal, denies any abnormal vaginal bleeding. Denies abdominal pain, unintentional weight loss, or night sweats. She reports family history of cancer: mother had thyroid cancer, father had colon cancer. Initial VS at presentation: 96.8? F, HR 136, R 28, 57/30, and 86% on room air. Now 98% on 3L NC. ED workup showed: WBC 12.7, no anemia, INR 1.5, PTT 37.9, lactic 7.1 (repeat 5.1), creatinine 1.02 and GFR 55 (no previous available for comparison), BNP 640, initial troponin 0.575 (repeat 0.743), AST 88, ALT 48, potassium 2.8. UA was cloudy with 3+ protein, 11-20 RBC, 11-20 WBC, no epithelial cells, rare bacteria. Viral PCR negative. CXR showed no focal infiltrate or effusion. Head CT showed no acute intracranial hemorrhage or suspicious mass effect. CTA of the chest/abdomen/pelvis showed bilateral pulmonary emboli with significant right heart strain, 11 cm likely necrotic mass within the right hemipelvis, significant retroperitoneal and mesenteric lymphadenopathy, periportal edema with venous congestion in the mesentery, and no real foci of fluid and attenuation within the liver. US of the RLE showed no DVT, however the great saphenous vein is noncompressible suggestive of thrombosis. [facility] Past Medical History Medical History B-cell lymphoma 2017 Vitamin D deficiency, unspecified Celiac disease Family History Family History Mother Family history of diabetes mellitus in first degree relative Patient's mother is in good health Father Family history of diabetes mellitus in first degree relative Other Family history of coronary artery disease Social History Social History Smoking status: Never smoker Second hand tobacco smoke exposure: No Alcohol intake: current Drinks per week: 2 Substance use: never Substance use type: does not use Do You Feel Safe in your Home?: Yes Lack of Transportation: No Lack of Food: Never True Current Housing: Decline to Answer Concerned About Future Housing: Decline to Answer Difficulty Paying Gas/Electric Bills: Decline to Answer Difficulty Paying for Meds: Decline to Answer Currently Unemployed: Decline to Answer Education: Bachelor's Degree Difficulty w/ Childcare or Family Care: No Spiritual care concerns: No Meds Home Medications and Allergies Home Medications ?Medication ?Instructions ?Recorded ?Confirmed ?Type ascorbate calcium (vitamin C) 500 500 mg PO DAILY 04/07/21 08/06/24 History mg tablet cholecalciferol (vitamin D3) 125 125 mcg PO DAILY 04/07/21 08/06/24 History mcg (5,000 unit) capsule turmeric 100 mg-beatriz 150 cap PO 04/07/21 04/07/21 History mg-olive 50 mg-oreg 150 mg-capryl capsule allopurinol 300 mg tablet mg 08/06/24 History Allergies Allergy/AdvReac Type Severity Reaction Status Date / Time Penicillins Allergy Mild Rash Verified 04/07/21 07:22 gluten AdvReac lowers iron Verified 04/07/21 07:22 Vital Signs Vital Signs - 24 hr 08/05/24 18:00 08/05/24 18:20 08/05/24 18:20 Temperature 96.8 F L Pulse Rate 136 H Respiratory Rate 28 H Blood Pressure 57/30 L Pulse Oximetry 86 L 86 L 90 Oxygen Delivery Room Air Nasal Cannula Nasal Cannula Oxygen Flow Rate 2 3 08/05/24 18:24 08/05/24 18:25 08/05/24 18:30 Temperature Pulse Rate 117 H 119 H 118 H Respiratory Rate 36 H 36 H 35 H Blood Pressure 83/43 L 71/59 L Pulse Oximetry Oxygen Delivery Oxygen Flow Rate 08/05/24 18:31 08/05/24 18:39 08/05/24 18:40 Temperature 96.7 F L Pulse Rate 116 H 119 H 132 H Respiratory Rate 33 H 35 H Blood Pressure 73/30 L Pulse Oximetry Oxygen Delivery Oxygen Flow Rate 08/05/24 18:45 08/05/24 18:46 08/05/24 19:00 Temperature 97.7 F 97.8 F 98.3 F Pulse Rate 119 H 118 H 124 H Respiratory Rate 34 H 32 H 37 H Blood Pressure 87/75 L 84/60 L Pulse Oximetry Oxygen Delivery Oxygen Flow Rate 08/05/24 19:02 08/05/24 19:15 08/05/24 19:16 Temperature 98.3 F 98.0 F 97.9 F Pulse Rate 124 H 123 H 123 H Respiratory Rate 32 H 30 H 25 H Blood Pressure 86/71 L Pulse Oximetry Oxygen Delivery Oxygen Flow Rate 08/05/24 19:25 08/05/24 19:26 08/05/24 19:30 Temperature 97.7 F 97.6 F Pulse Rate 124 H 124 H 125 H Respiratory Rate 32 H 30 H Blood Pressure 86/71 L 86/70 L 81/39 L Pulse Oximetry 68 L Oxygen Delivery Oxygen Flow Rate 08/05/24 20:20 08/05/24 20:34 08/05/24 21:20 Temperature 97.4 F L 97.9 F Pulse Rate 126 H 125 H 120 H Respiratory Rate 24 H 25 H 23 H Blood Pressure 97/77 L 107/71 98/77 L Pulse Oximetry 99 100 100 Oxygen Delivery Oxygen Flow Rate 08/05/24 21:31 08/05/24 21:40 08/05/24 21:50 Temperature 98.0 F 98.1 F 98.3 F Pulse Rate 117 H 117 H 117 H Respiratory Rate 19 22 H 17 Blood Pressure 116/81 113/89 114/87 Pulse Oximetry 99 98 97 Oxygen Delivery Oxygen Flow Rate 08/05/24 22:10 08/06/24 00:10 08/06/24 00:17 Temperature 98.5 F 99.8 F H Pulse Rate 119 H 110 H 109 H Respiratory Rate 17 16 19 Blood Pressure 112/85 98/76 L 106/82 Pulse Oximetry 98 98 98 Oxygen Delivery Oxygen Flow Rate 08/06/24 01:25 08/06/24 02:50 08/06/24 03:46 Temperature 100.0 F H Pulse Rate 107 H 108 H 99 Respiratory Rate 18 18 19 Blood Pressure 110/87 133/95 H 122/92 H Pulse Oximetry 98 97 99 Oxygen Delivery Oxygen Flow Rate 08/06/24 04:46 08/06/24 05:01 08/06/24 05:16 Temperature 100.2 F H 100.3 F H 100.3 F H Pulse Rate 99 100 100 Respiratory Rate 27 H 20 20 Blood Pressure 116/90 117/94 H 115/98 H Pulse Oximetry 98 98 97 Oxygen Delivery Oxygen Flow Rate 08/06/24 05:31 08/06/24 05:47 08/06/24 06:01 Temperature 100.3 F H 100.1 F H 100.1 F H Pulse Rate 100 101 H 95 Respiratory Rate 22 H 19 25 H Blood Pressure 108/91 H 109/93 H 125/92 H Pulse Oximetry 97 99 Oxygen Delivery Oxygen Flow Rate 08/06/24 06:16 08/06/24 06:31 08/06/24 06:46 Temperature 100.1 F H 100.2 F H 100.3 F H Pulse Rate 94 94 94 Respiratory Rate 24 H 26 H 23 H Blood Pressure 121/92 H 121/90 129/87 Pulse Oximetry 99 99 97 Oxygen Delivery Oxygen Flow Rate 08/06/24 07:01 08/06/24 07:16 08/06/24 07:31 Temperature 100.3 F H 100.3 F H 100.2 F H Pulse Rate 95 98 97 Respiratory Rate 21 H 16 19 Blood Pressure 115/91 H 107/92 H 115/86 Pulse Oximetry 98 96 97 Oxygen Delivery Oxygen Flow Rate 08/06/24 07:45 08/06/24 08:01 08/06/24 08:02 Temperature 100.2 F H 100.0 F H 100.1 F H Pulse Rate 96 93 94 Respiratory Rate 22 H 17 15 Blood Pressure 125/93 H 126/94 H 126/94 H Pulse Oximetry 99 97 97 Oxygen Delivery Oxygen Flow Rate 08/06/24 08:15 08/06/24 08:30 08/06/24 08:45 Temperature 100.1 F H 100.2 F H 100.3 F H Pulse Rate 91 91 92 Respiratory Rate 22 H 22 H 25 H Blood Pressure 135/93 H 124/95 H 131/88 Pulse Oximetry 98 98 98 Oxygen Delivery Oxygen Flow Rate 08/06/24 09:00 08/06/24 09:15 08/06/24 09:28 Temperature 100.3 F H 100.3 F H 100.3 F H Pulse Rate 96 91 93 Respiratory Rate 21 H 21 H 18 Blood Pressure 139/102 H 128/99 H 128/99 H Pulse Oximetry 98 98 99 Oxygen Delivery Oxygen Flow Rate 08/06/24 09:30 08/06/24 09:37 08/06/24 09:41 Temperature 100.2 F H 100.2 F H Pulse Rate 93 100 Respiratory Rate 17 Blood Pressure 130/94 H 130/94 H Pulse Oximetry 99 Oxygen Delivery Oxygen Flow Rate 08/06/24 09:45 08/06/24 10:22 08/06/24 11:30 Temperature 100.2 F H 99.9 F H 99.8 F H Pulse Rate 99 100 99 Respiratory Rate 20 18 23 H Blood Pressure 122/82 114/85 99/84 L Pulse Oximetry 99 98 98 Oxygen Delivery Oxygen Flow Rate 08/06/24 11:48 08/06/24 13:25 08/06/24 14:10 Temperature 99.8 F H 99.9 F H 99.9 F H Pulse Rate 97 94 96 Respiratory Rate 16 15 18 Blood Pressure 113/83 107/76 112/76 Pulse Oximetry 97 98 98 Oxygen Delivery Oxygen Flow Rate Exam Const: General: comfortable and no acute distress Other: , female, nontoxic appearance HENMT: Face/Nose/Sinus: Normal nares present Mouth: Yes moist mucous membranes Eyes: General: appearance normal, both eyes and all related structures Sclera: sclerae normal Pupils: Equal, round and reactive pupils present EOM: EOMs intact bilaterally Resp: Effort & Inspection: normal respiratory effort Auscultation: clear to auscultation bilaterally Cardio: Rate: regular rate Rhythm: regular rhythm Other: Loud 2nd heart sound. GI: Other: Abdomen soft, nondistended, nontender. Normoactive bowel sounds in all quadrants. Skin: General skin exam: normal color and no rashes or lesions noted Wounds: no wounds Neuro: Speech: normal speech Motor exam (neuro): 5/5 motor strength present throughout Sensory Exam: normal sensation Other: A&O x4 Extrem: Other: 1+ edema to RLE w/trace pitting. No abn ormalities to left lower extremity. Psych: Mental Status: mental status grossly normal Affect: Anxious affect present Other: Good insight and judgment, pleasant H&P: Results Labs Labs: Short CBC 08/05/24 08/05/24 08/06/24 Range/Units 18:35 21:57 05:30 WBC 12.7 H 17.3 H 11.9 H (4.5-10.0) K/mm3 Hgb 12.2 13.1 12.6 (12.0-15.0) g/dL Hct 36.7 L 39.6 36.9 L (37.0-47.0) % Plt Count 195 159 155 (150-375) k/mm3 BMP 08/05/24 18:39 Sodium 140 Potassium 2.8 L* Chloride 103 Carbon Dioxide 21 L BUN 9 Creatinine 1.02 H Glucose 225 H Calcium 9.5 Cardiac Enzymes 08/05/24 08/05/24 Range/Units 18:39 21:57 Troponin I 0.575 H* 0.743 H* D (0.000-0.034) ng/mL Liver Function 08/05/24 Range/Units 18:39 Total Bilirubin 0.6 (0.2-1.3) mg/dL AST 88 H (14-36) U/L ALT 48 H (6-35) U/L Alkaline Phosphatase 71 (38-126) U/L Albumin 3.6 (3.5-5.1) g/dL Urine 08/05/24 Range/Units 19:05 Urine Color Yellow (Yellow) Urine Appearance Cloudy H (Clear) Urine pH 7.5 (5.0-9.0) Ur Specific [place] 1.010 (1.001-1.035) Urine Protein 3+ H (Negative) mg/dL Urine Glucose (UA) Negative (Negative) mg/dL Assessment and Plan Assessment and plan (1) Obstructive cardiovascular shock: Code(s): R57.8 - Other shock Status: Acute Assessment and Plan: - secondary to bilateral PE with significant right heart strain, see below - norepinephrine gtt, maintain map greater than 65. Has been weaned off of medications afternoon. - monitor I&Os - lactic: 7.1-> 5.1-> 1.2 - trend ABG (2) Pulmonary embolism, bilateral: Code(s): I26.99 - Other pulmonary embolism without acute cor pulmonale Status: Acute Assessment and Plan: - CTA chest/abd/pelvis: Bilateral pulmonary emboli with significant right heart strain. 11 cm likely necrotic mass within the right hemipelvis. Significant retroperitoneal and mesenteric lymphadenopathy. Periportal edema with venous congestion in the mesentery. Innumerable foci of fluid and attenuation within the liver - CXR: No focal infiltrate or effusion. - US RLE: No deep vein thrombosis. Great saphenous vein is noncompressible suggestive of thrombosis. - US LLE ordered - echo ordered - currently requiring norepinephrine, maintain map greater than 65. Currently off infusion. - heparin gtt - admission to the ICU, fur mixer operator consulted (3) Acute cor pulmonale: Code(s): I26.09 - Other pulmonary embolism with acute cor pulmonale Status: Acute Assessment and Plan: - see above (4) Bacteremia: Code(s): R78.81 - Bacteremia Status: Acute Assessment and Plan: - blood cultures obtained on 08/05, 07/18 preliminary results showing Gram-positive cocci in clusters in aerobic bottle only. Second bottle showing no growth to date. Suspect contamination, however given patient's critical nature will proceed with bacteremia coverage. - started on vancomycin and meropenem on 08/06 - procalcitonin 0.1 - no longer requiring pressor (5) Elevated troponin: Code(s): R79.89 - Other specified abnormal findings of blood chemistry Status: Acute Assessment and Plan: - EKG, initial: Sinus tachycardia, borderline right axis deviation, incomplete right bundle branch block, septal CO, probably old and ST depression, consider subendocardial injury. - repeat EKG - Troponin: 0.575 -> 0.743 -> 0.879 - heparin gtt - echo pending - telemetry monitoring - suspect elevation secondary to hypoxia, obstructive shock, and profound hypotension (6) Syncope: Qualifiers: Syncope type: unspecified Qualified Code(s): R55 - Syncope and collapse Code(s): R55 - Syncope and collapse Status: Acute Assessment and Plan: - suspect syncope secondary to profound hypotension and PE w/acute cor pulmonale. started on heparin. - IV fluids: 3L bolus -> 125 mL/hr. monitor volume status closely to avoid further RV strain. (7) Hypokalemia: Code(s): E87.6 - Hypokalemia Status: Acute Assessment and Plan: - K 2.8 -> 3.8 - initially replaced w/ 20 KCL IV - montior Plan Diet: heart healthy GI Prophylaxis: Pantoprazole IV DVT Prophylaxis: Heparin gtt Lines: Peripheral Code Status: full code Quality VTE Prophylaxis VTE prophylaxis: pharmacologic ordered Critical Care Time: I personally spent 60 minutes of direct patient care including (but not limited to) the physical examination, decision-making, bedside evaluation, review of medical records, review of labs and imaging, discussion with nursing staff and other providers for collaborative, critical care management of this patient. Hospitalist [facility] Advance Care Plan I have confirmed that the patient's Advanced Care Plan is present, code status is documented, or surrogate decision maker is listed in patient medical record.: Yes Medication Reconciliation I have utilized all available resources to obtain, update and review the patients current medications (includes all prescriptions, OTC, herbals, cannabis, and nutritional supplements).: Yes
[2024-08-06] MEDS: SODIUM CHLORIDE 0.9% IV 1,000 ML 125 ML IV CONT (15:13)
[2024-08-06 15:23] LABS: Basophils Percent Auto 0.3 % (0.2-1.2); Eosinophils Percent Auto 0.2 % (0-4.4); Hematocrit 32.2 % (37.0-47.0); Hemoglobin 10.8 g/dL (12.0-15.0); Immature Granulocyte Absolute 0.02 K/mm3 (0.00-0.031); Immature Granulocyte Percent A 0.3 % (0-0.5); Lymphocytes Absolute Auto 0.96 K/mm3 (0.9-3.2); Mean Corpuscular HGB Conc 33.5 g/dl (32-36); Mean Corpuscular Hemoglobin 29.7 pg (26-34); Mean Corpuscular Volume 88.5 fl (80-100); Mean Platelet Volume 10.5 fl (7.4-10.4); Monocytes Absolute Auto 0.6 K/mm3 (0.1-0.6); Monocytes Percent Auto 10.2 % (2.6-8.5); Neutrophils Absolute Auto 4.4 K/mm3 (1.3-6.7); Platelet Count Result 95 k/mm3 (150-375); Red Blood Count 3.64 M/mm3 (4.2-5.4); Red Cell Distribution Width 13.4 % (11.5-14.5)
[2024-08-06 15:24] LABS: Lactic Acid Reflex 1.2 mmol/L (0.7-2.0)
[2024-08-06 15:26] LABS: Alanine Aminotransferase 325 U/L (6-35); Albumin Level 2.9 g/dL (3.5-5.1); Alkaline Phosphatase 72 U/L (38-126); Anion Gap 4 mmol/L (4-12); Aspartate Amino Transferase 302 U/L (14-36); Bilirubin,Total 0.5 mg/dL (0.2-1.3); Blood Urea Nitrogen 11 mg/dL (7-17); Carbon Dioxide 27 mmol/L (22-30); Chloride 110 mmol/L (98-107); Estimated CRCL calculation 66 ml/min; Estimated Glomerular Filt Rate > 60; Glucose 96 mg/dL (65-110); Magnesium 1.8 mg/dL (1.6-2.3); Potassium 3.8 mmol/L (3.4-5.0); Sodium 141 mmol/L (137-145)
[2024-08-06 15:43] LABS: Troponin I 0.879 ng/mL (0.000-0.034)
--- NOTE | 2024-08-06 15:50 | ECG_ITS ---
Test Date: 2024-08-06 16:53:44 Measurements Intervals [place] Rate: 96 P: 51 NH: 133 QRS: 39 QRSD: 89 T: -36 QT: 342 QTc: 433 Interpretive Statements SINUS RHYTHM POSSIBLE RIGHT VENTRICULAR CONDUCTION DELAY [RSR (QR) IN V1/V2] NONSPECIFIC T-WAVE ABNORMALITY Compared to ECG 08/05/2024 18:19:45 T-wave abnormality now present Sinus tachycardia no longer present Incomplete right bundle-branch block no longer present Myocardial infarct finding no longer present ST (T wave) deviation no longer present Electronically Signed On 08-08-2024 13:36:28 GED TUTOR by Lucita Phan
[2024-08-06 18:25] LABS: Partial Thromboplastin Time 99.9 Seconds (22.3-36.8)
--- NOTE | 2024-08-06 19:00 | PC.NURSE ---
This patient, Tiffanie Guardado, was admitted to Intensive Care Unit-5. Patient/family oriented to hospital policies and general routines including ID bracelet, bed and alarms, visiting hours, pain management, procedures, bathroom and other care routines, personal items, smoking policy, room service/diet, and visiting hours. Information on how to activate the Rapid Response Team has been discussed. Patient/Family are encouraged to report perceived risks to care and to ask questions if they do not understand what they are told or what they should do.
[2024-08-06 20:40] LABS: MRSA (PCR) NOT DETECTED (NOT DETECTE)
--- NOTE | 2024-08-06 21:01 | ECG_ITS ---
Test Date: 2024-08-06 21:06:55 Measurements Intervals [place] Rate: 95 P: 55 NE: 155 QRS: 27 QRSD: 93 T: -36 QT: 351 QTc: 443 Interpretive Statements SINUS RHYTHM INCOMPLETE RIGHT BUNDLE BRANCH BLOCK [90+ ms QRS DURATION, TERMINAL R IN V1/V2, 40+ ms S IN I/aVL/V4/V5/V6] MODERATE T-WAVE ABNORMALITY, CONSIDER ANTERIOR ISCHEMIA [-0.1+ mV T WAVE IN V3/V4] MODERATE T-WAVE ABNORMALITY, CONSIDER INFERIOR ISCHEMIA [-0.1+ mV T WAVE IN II/aVF] Compared to ECG 08/06/2024 16:53:44 Incomplete right bundle-branch block now present Possible ischemia now present T-wave abnormality still present Electronically Signed On 08-08-2024 13:42:27 HEALTH INFORMATICS ADVISOR by Lucita Phan
--- NOTE | 2024-08-06 21:26 | PC.NURSE ---
Updated [facility] transfer center. Pt remains on [facility] ICU waitlist.
[2024-08-06] MEDS: MEROPENEM 1 GM/NS 100 ML 1 GM/100 ML BAG IVPB (21:36)
[2024-08-06] MEDS: VANCOMYCIN 2,000 MG/NS 500 ML 2,000 MG/500 ML BAG 250 MG IVPB (22:16)
[2024-08-06] MEDS: HEPARIN SOD/D5W 100 UNITS/ML 25,000 UNITS/250 ML BAG 9 UNITS IV CONT (22:17)
--- NOTE | 2024-08-06 23:39 | PC.NURSE ---
Images sent to [facility] and [facility] per Corinne Mclean NP request. Pt has asked that she be placed on the waitlist at other facilities since [facility] does not have a bed available at this time.
[2024-08-07] VITALS: BP 111/72; PULSE 94; PULSE 97; RESP 19; TEMP 37.7; O2SAT 94
[2024-08-07 00:33] LABS: Partial Thromboplastin Time 99.9 Seconds (22.3-36.8)
--- NOTE | 2024-08-07 00:54 | PC.NURSE ---
Pt to transfer to [facility] on [address] Rm [id number]. Report to be called to [phone]. Dr. Vasquez is the accepting physician.
--- NOTE | 2024-08-07 01:04 | PC.NURSE ---
Report called to ROB Mcallister at [facility] [phone].
[2024-08-07 02:00] VITALS: BP 132/83; PULSE 102; RESP 18; TEMP 37.8; O2SAT 95
[2024-08-07 02:01] VITALS: TEMP 37.9
[2024-08-07] MEDS: ACETAMINOPHEN 325 MG TABLET 650 MG PO (02:01)
[2024-08-07] MEDS: SODIUM CHLORIDE 0.9% IV 1,000 ML 125 ML IV CONT (02:03)
[2024-08-07 03:01] VITALS: TEMP 37.8
[2024-08-07 03:30] VITALS: BP 130/83; PULSE 103; RESP 19; TEMP 37.8; O2SAT 93
--- OUTSIDE RECORDS SUMMARY | 2024-08-08 14:52 | XMS_ITS | Data Portability ---
Author Organization [facility] Address [address] [place] [address] Care Team Providers Care Stock Digger Name Role Phone FUAD DIXON Primary Care Provider Unavailab le Assessment Encounter Date Assessment Date Assessment LastModified by Organization Details LastModified Time 07/03/2024 07/03/2024 still to get mammogram scheduled. still to get colonoscopy Not available 07/03/2024 11:56:53 Plan of Treatment Reminders Order Date Submit Date Provider Last Modified By Organization Details Last Modified Time Details Appointments ANY 15 2024 11:00A M RADHA Koo Not available Not available Not available Lab CBC w/ auto diff 2023 024 [facility], [address], [place], [address], 03/05/2024 14:25:52 CMP, serum or plasma 2023 024 [employer] [facility], [place], [address], 03/05/2024 14:26:40 TSH + free T4, serum 2023 024 [employer] [facility], [place], [address], 03/05/2024 14:26:17 lipid panel, serum 2023 024 [employer] [facility], [place], [address], 03/05/2024 14:26:27 iron + TIBC + ferrit in, serum 2023 024 [facility], [address], [place], [address], 01/02/2024 11:27:57 vitami n B12 + folate , serum or blood 2023 024 [facility], [address], [place], [address], 03/05/2024 14:27:51 HbA1c (hemog lobin A1c), blood 2023 024 [facility], [address], [place], [address], 03/05/2024 14:27:33 CBC w/ auto diff 2023 025 [email or web address], [address], [place], [address], 07/03/2024 12:12:48 CMP, serum or plasma 2023 025 [email or web address], [address], [place], [address], 07/03/2024 12:12:48 TSH + free T4, serum 2023 025 [email or web address], [address], [place], [address], 07/03/2024 12:12:48 lipid panel, serum 2023 025 [email or web address], [address], [place], [address], 07/03/2024 12:12:48 iron + TIBC + ferrit in, serum 2023 025 [email or web address], [address], [place], [address], 07/03/2024 12:12:48 vitami n B12 + folate , serum or blood 2023 025 [email or web address], [address], [place], [address], 07/03/2024 12:12:48 HbA1c (hemog lobin A1c), blood 2023 025 [email or web address] [facility], [address], [place], [address], 07/03/2024 12:12:48 magnes ium, serum or plasma 2024 025 [facility], [address], [place], [address], 08/08/2024 08:58:31 Referral None record ed. Procedures colono scopy screen ing (PROC) 2023 024 [email or web address] [facility], [address], [address], [place], [address], 07/22/2024 15:48:43 colono scopy screen ing (PROC) 2023 024 [email or web address] [facility], [address], [address], [place], [address], 07/03/2024 13:20:44 Surgeries None record ed. Imaging MAMMO, screen ing, digita l, bilate ral 2023 024 [email or web address] [facility] (Scheduling), [address] [place] [address] , [place], [address], 05/09/2024 10:32:55 MRI, brain, w/wo contra st - Author gustavo n # [id number] 2023 024 [facility] (Radiology Scheduling), [address], [place], [address], 04/10/2024 12:15:35 XR, calcan eus, 2 or more view 2023 024 [facility], [address] [place] [address] , [place], [address], 02/14/2024 07:02:55 US, abdome n, comple te 2023 024 [facility], 2022 Indira Gustafson, [address], [address], 07/29/2024 11:52:25 CT, abdome n + pelvis , w/ contra st 2024 025 [facility] (Radiology Scheduling), [address], [place], [address], 07/19/2024 17:45:26 US, duplex , venous , lower extrem ity, unilat eral 2024 025 [facility] (Imaging), [address] [place] [address] [address], [place], [address], 07/18/2024 18:13:08 Medication Orders None record ed. Patient TargetsNo targets recorded. Patient Instructions Encounter Date Encounter Id Patient Instructions Last Modified By Organization Details Last Modified Time 07/18/2024 [id number] A healthy lifestyle: care instructions Not available 07/18/2024 16:07:37 Reason for Referral None Reported. Results Created Date Observation Date Name Description Value Unit Range Abnormal Flag Note LastModifiedBy Organization Detail LastModifiedTime 02/13/20 24 02/13/2024 XR, calca neus, 2 or more view No observ ation record ed. [address] [facility] [address], [place], [address], 02/14/2024 15:24:05 07/18/19 25 07/18/2024 US, aditi dominguez, venou s, lower extre mity, unila teral No observ ation record ed. [address], [place], [address], 07/19/2024 10:11:42 07/19/19 25 07/19/2024 CT, abdom en + pelvi s, w/ contr ast No observ ation record ed. [address], [place], [address], 07/22/2024 09:27:01 08/06/19 25 08/05/2024 CT, angio gram, chest + abdom en + pelvi s, w/ contr ast No observ ation record ed. [email or web address] [place], [place] [address]e [facility], [place], [address], 08/07/2024 10:34:13 08/07/19 25 08/06/2024 US, aditi x, devenou s, lower extre mity, unila teral No observ ation record ed. [address], [place], [address], 08/07/2024 10:34:14 Result Notes None recorded. Problems Name Problem SNOMED Code Status Onset Date Resolution Date Notes Provider Name and Address Organization Details Recorded Time History of squamous cell carcinoma of skin 840153716 Active 2023 RADHA Koo Attn: Accountin g,[address] [facility], [place], [address], [place] [facility] 4 22:30:25 History of malignant basal cell neoplasm of skin 515672010 Active 2023 RADHA Koo Attn: Accountin g,[address] [facility], [place], [address], [place] [facility] 4 22:30:25 History of malignant melanoma of the skin 311169435375 Active 2023 RADHA Koo Attn: [place] [facility],[address] [facility], [place], [address], [place] [facility] 4 22:30:26 History of anemia 205823282 Active 2023 RADHA Koo Attn: [place] [facility],[address] [facility], [place], [address], [place] [facility] 4 22:30:49 History of non-Hodgkin s lymphoma 984957778 Active 2023 RADHA Koo Attn: [place] [facility],[address] [facility], [place], [address], [place] [facility] 4 22:31:07 Body mass index 25-29 - overweight 376614794 Active 2023 Elaine Simpson MA null, [place] [facility] 4 11:46:34 Overweight 731663026 Active 2024 RADHA Koo Attn: [place] [facility],[address] [facility], [place], [address], [place] [facility] 5 13:16:48 Long-term drug therapy Active 2024 RADHA Koo Attn: [place] [facility],[address] [facility], [place], [address], [place] [facility] 5 13:16:52 Problem Notes None recorded. Procedures Surgical History None recorded. Imaging Results Imaging Date Name Status LastModified by Organiz ation Details LastModified Time 02/13/2024 XR, calcaneus, 2 or more view completed [address] [facility] [address] [place] [address] , [place], [address], 02/14/2024 15:24:05 07/18/2024 US, duplex, venous, lower extremity, unilateral completed [address], [place], [address], 07/19/2024 10:11:42 07/19/2024 CT, abdomen + pelvis, w/ contrast completed [place] [address], [place], [address], 07/22/2024 09:27:01 08/05/2024 CT, angiogram, chest + abdomen + pelvis, w/ contrast completed [email or web address] [place] [address] [address], [address], 08/07/2024 10:34:13 08/06/2024 US, duplex, venous, lower extremity, unilateral completed [address], [place], [address], 08/07/2024 10:34:14 Procedure Notes None recorded. Medical Equipment None Reported. Allergies Allergen ID Allergen Name Allergen Category Reaction Reaction Severity Criticality Documentation Date Start Date Code Code System Note Provider Name and Address Organization Details Recorded Time [id number] 2824e Product containin g penicilli n and antibioti c (product) medicatio n Not available Not available Not available 11/23/2023 73740 05 SNOMED Not Available Not Available Not Available Medications Name Sig Start Date Stop Date Status Note LastModified by Organization Details LastModified Time doxycycline hyclate 100 mg capsule Take 1 capsule twice a day by oral route with meal(s). 07/03 completed Not Available Not Available Not Available clindamycin HCl 300 mg capsule 07/03 completed uti Not Available Not Available Not Available azithromyci n 250 mg tablet TAKE 2 TABLETS (500 MG) BY ORAL ROUTE ONCE DAILY FOR 1 DAY THEN 1 TABLET (250 MG) BY ORAL ROUTE ONCE DAILY FOR 4 DAYS 07/18 completed Not Available Not Available Not Available ofloxacin 0.3 % eye drops INSTILL 1 DROP INTO AFFECTED EYE(S) BY OPHTHALMI C ROUTE 4 TIMES PER DAY x 5-7 days 07/03 completed Not Available Not Available Not Available acyclovir 400 mg tablet TAKE 1 (ONE) TABLET BY MOUTH 2 TIMES DAILY active Not Available Not Available No t Available nitrofurant oin monohydrate /macrocryst als 100 mg capsule TAKE 1 (ONE) CAPSULE BY MOUTH 2 TIMES DAILY WITH MORNING AND EVENING MEAL FOR 5 DAYS 07/03 completed Not Available Not Available Not Available Eliquis DVT-PE Treatment 30-Day Starter 5 mg (74 tablets) in dose pack active Not Available Not Available No t Available BinaxNOW COVID-19 Ag Self Test kit USE DIRECTED 11/22 completed Not Available Not Available Not Available Paxlovid 300 mg (150 mg x 2)-100 mg tablets in a dose pack PLEASE SEE ATTACHED FOR DETAILED DIRECTION S 11/22 completed Not Available Not Available Not Available Vitals Date Recorded Body height Provider Name an d Address Organization Details Last Updated DateTime 11/23/2023 172.72 cm Elaine Simpson MA [facility] 2023 15:20:55 Date Recorded Respiratory rate Provider Name a nd Address Organization Details Last Updated DateTime 11/23/2023 20 /min Elaine Simpson MA [facility] 11/23/2023 15:22:15 Date Recorded Oxygen saturation Oxygen saturation in Arterial blood by Pulse oximetry Provider Name and Address Organization Details Last Updated DateTime 11/23/2023 97 % 97 % Elaine Simpson MA [facility] 11/23/2023 15:22:52 Date Recorded Heart rate Provider Name an d Address Organization Details Last Updated DateTime 11/23/2023 86 /min Elaine Simpson MA [facility] 2023 15:22:54 Date Recorded Body mass index (BMI) Body weight Provider Name and Address Organization Details Last Updated DateTime 11/23/2023 27.7 kg/m2 87233.24 g Elaine Simpson MA [facility] 11/23/2023 15:22:59 Date Recorded Body height Provider Name an d Address Organization Details Last Updated DateTime 07/03/2024 172.72 cm Elaine Simpson MA [facility] 2023 11:40:59 Date Recorded Body mass index (BMI) Body weight Provider Name and Address Organization Details Last Updated DateTime 07/03/2024 28.6 kg/m2 78239.37 g Elaine Simpson MA [facility] 07/03/2024 11:41:03 Date Recorded Respiratory rate Provider Name a nd Address Organization Details Last Updated DateTime 07/03/2024 20 /min Elaine Simpson MA [facility] 07/03/2024 11:45:23 Date Recorded Oxygen saturation Oxygen saturation in Arterial blood by Pulse oximetry Provider Name and Address Organization Details Last Updated DateTime 07/03/2024 98 % 98 % Elaine Simpson [place] [facility] 07/03/2024 11:47:02 Date Recorded Heart rate Provider Name an d Address Organization Details Last Updated DateTime 07/03/2024 98 /min Elaine Simpson [place] [facility] 2023 11:47:07 Date Recorded Body height Provider Name an d Address Organization Details Last Updated DateTime 07/18/2024 172.72 cm Elaine Simpson [place] [facility] 2024 15:34:33 Date Recorded Body mass index (BMI) Body weight Provider Name and Address Organization Details Last Updated DateTime 07/18/2024 28.6 kg/m2 01252.37 g Elaine Simpson MA [facility] 07/18/2024 15:37:03 Date Recorded Respiratory rate Provider Name a nd Address Organization Details Last Updated DateTime 07/18/2024 20 /min Elaine Simpson [place] [facility] 07/18/2024 15:38:49 Date Recorded Oxygen saturation Oxygen saturation in Arterial blood by Pulse oximetry Provider Name and Address Organization Details Last Updated DateTime 07/18/2024 97 % 97 % Elaine Simpson [place] [facility] 07/18/2024 15:39:06 Date Recorded Heart rate Provider Name an d Address Organization Details Last Updated DateTime 07/18/2024 80 /min Elaine Simpson MA [facility] 2024 15:39:09 Date Recorded Systolic blood pressure Diastolic blood pressure Provider Name and Address Organization Details Last Updated DateTime 11/23/2023 140 mm[Hg] 82 mm[Hg] CHRISTINE Merrill [facility] 11/23/2023 15:29:08 Date Recorded Systolic blood pressure Diastolic blood pressure Provider Name and Address Organization Details Last Updated DateTime 11/23/2023 150 mm[Hg] 88 mm[Hg] Elaine Simpson MA [facility] 11/23/2023 15:29:24 Date Recorded Systolic blood pressure Diastolic blood pressure Provider Name and Address Organization Details Last Updated DateTime 07/03/2024 162 mm[Hg] 80 mm[Hg] Elaine Simpson MA [facility] 07/03/2024 11:48:13 Date Recorded Systolic blood pressure Diastolic blood pressure Provider Name and Address Organization Details Last Updated DateTime 07/03/2024 130 mm[Hg] 80 mm[Hg] RADHA Koo Attn: Accounting,[address] [place], [address], [facility] 07/03/2024 12:04:00 Date Recorded Systolic blood pressure Diastolic blood pressure Provider Name and Address Organization Details Last Updated DateTime 07/03/2024 134 mm[Hg] 80 mm[Hg] RADHA Koo Attn: Accounting,[address] [place], [address], [facility] 07/03/2024 12:10:54 Date Recorded Systolic blood pressure Diastolic blood pressure Provider Name and Address Organization Details Last Updated DateTime 07/18/2024 152 mm[Hg] 82 mm[Hg] Elaine Simpson MA [facility] 07/18/2024 15:40:27 Date Recorded Systolic blood pressure Diastolic blood pressure Provider Name and Address Organization Details Last Updated DateTime 07/18/2024 142 mm[Hg] 80 mm[Hg] RADHA Koo Attn: Accounting,[address] [place], [address], [facility] 07/18/2024 16:16:07 Social History Question Answer Notes LastModified by Organizat ion Details LastModified Time Tobacco Smoking Status Never Smoker Elaine Simpson MA null, [facility] 11/21/2023 15:44:59 Do You Have An Advance Directive? Yes Information n ot available 11/21/2023 What Is Your Level Of Alcohol Consumption? Moderate Information not available 11/21/2023 Are You Blind Or Do You Have Difficulty Seeing? No Information n ot available 11/21/2023 What Is Your Level Of Caffeine Consumption? Moderate Information not available 11/21/2023 In The 14 Days Before Symptom Onset, Have You Had Close Contact With A Laboratory-confirm ed COVID-19 While That Case Was Ill? No Information n ot available 11/21/2023 In The 14 Days Before Symptom Onset, Have You Had Close Contact With A Person Who Is Under Investigation For COVID-19 While That Person Was Ill? No Information not available 11/21/2023 Have You Been To An Area Known To Be High Risk For COVID-19? No Information not available 11/21/2023 Are You Deaf Or Do You Have Serious Difficulty Hearing? No Information not available 11/21/2023 What Type Of Diet Are You Following? GLUTENFREE Information n ot available 11/21/2023 Are There Any Guns Present In Your Home? No Information not available 11/21/2023 What Was The Date Of Your Most Recent Tobacco Screening? 07/18/2024 Information not available 07/18/2024 What Is Your Relationship Status? Single Information not available 11/21/2023 Do You Use Your Seat Belt Or Car Seat Routinely? Yes Information not available 11/21/2023 Do You Have Smoke And Carbon Monoxide Detectors In Your Home? Yes Information not available 11/21/2023 Do You Use Any Illicit Or Recreational Drugs? No Information not available 11/21/2023 Do You Use Sunscreen Routinely? Yes Information not available 11/21/2023 Has Tobacco Cessation Counseling Been Provided? Yes Information not available 11/21/2023 On What Date Was Tobacco Cessation Counseling Provided? 07/18/2024 Information not available 07/18/2024 Do You Or Have You Ever Used Any Other Forms Of Tobacco Or Nicotine? No Information not available 11/21/2023 Sex: Female Functional Status Question Answer Note LastModified by Organizat ion Details LastModified Time Are you able to care for yourself? Yes Information not available 11/21/2023 What is your exercise level? Occasional Information not available 11/21/2023 Mental Status None recorded. Family History Nothing Reported. Medical History Condition Response Coronary Artery Disease N Other N High Blood Pressure N Atrial Fibrillation N Thyroid Problems N Kidney or Bladder Problems N GI Problems N Depression N COPD N Blood Clots N Skin Problems N Anemia N Heart Attack ([place]) N Diabetes N Anxiety Disorder N Muscle, Joint, or Bone Problems N Seizures/Epilepsy N Acid Reflux (GERD) N Cancer Y Stroke N Asthma N Allergies N High Cholesterol N Hepatitis N Liver Disease N Headaches N Osteoporosis N Heart Failure N Gynecological History Statement/Question Response Menses Monthly N Current Control Method Menopause Obstetrics History GPAL:G 2 P 2 0 0 2 Type Value Full Term 2 Induced 0 Spontaneous 0 Premature 0 Living 2 Total 2 Immunizations Vaccine Type Date Status Note Provider Nam e and Address Organization Details Recorded Time COVID-19, mRNA, LNP-S, PF, 100 mcg/0.5mL dose or 50 mcg/0.25mL dose 08/11/2021 completed CHRISTINE [place], [place] [facility] 07/03/2024 11:45:55 COVID-19, mRNA, LNP-S, PF, 100 mcg/0.5mL dose or 50 mcg/0.25mL dose 08/12/2020 completed CHRISTINE [place] [facility] 07/03/2024 11:45:55 COVID-19, mRNA, LNP-S, PF, 100 mcg/0.5mL dose or 50 mcg/0.25mL dose 09/10/2020 completed CHRISTINE [place] [facility] 07/03/2024 11:45:55 influenza, unspecified formulation 06/15/2012 completed CHRIST[place] [facility] 07/03/2024 11:45:55 Influenza, split virus, trivalent, PF 08/18/2016 completed CHRIST[place] [facility] 07/03/2024 11:45:55 Past Encounters Encounter ID Performer Location Encounter Start Date Encounter Closed Date Diagnosis/Indication Diagnosis SNOMED-CT Code Diagnosis ICD10 Code Diagnosis Note [id number] RADHA Koo [facility] [place] [address] [place] [address] 11/23/2023 14:56:45 11/23/2023 16:20:16 Headache 18675714 R51.9 headache behind right eye with coughing, for a few years she reports. no evaluation completed prior. check MRI brain w/wo contrast to rule out structural cause, especially in light of her non-hodgki ns hx. History of non-Hodgkins lymphoma 910684326 Z85.72 left breast origin. 2016; went to [facility] for tx. Saw Dr. Rachael Charles in [facility], and she was released, just yearly labs. routine CBC due Screening mammography 24 392038 Z12.31 annual mammogram due. Long-term drug therapy 361183284 Z79.899 routine cmp and TFTs due Cholesterol screening 27 7180637 Z13.220 fasting lipids due Diabetes m ellitus screening 093042411 Z13.1 annual a1c screening due History of anemia 740021 002 Z86.2 due for iron studies and b12, folate labs Screening for malignant neoplasm of colon 908795029 Z12.11 refer for colonoscop y screening due History of malignant melanoma of the skin 8416932865 08 Z85.820 hx noted History of malignant basal cell neoplasm of skin 465270430 Z85.828 hx noted History of squamous cell carcinoma of skin 531710344 Z85.828 hx noted Bilateral heel pain 1563 468421 3025410 M79.671 M79.672 check xray bilat. calcaneus [id number] RADHA Koo [place] [address] [facility] [address] [place] [address] 07/03/2024 11:36:08 07/03/2024 13:16:47 Body mass index 25-29 - overweight 563920649 Z68.28 BMI 28.6 History of non-Hodgkins lymphoma 061208408 Z85.72 left breast origin. 2017; went to [facility] for tx. Saw Dr. Rachael Charles in [facility], and she was released, just yearly labs. routine CBC due in december. Long-term drug therapy 942663164 Z79.899 routine cmp and TFTs due Cholesterol screening 27 0990847 Z13.220 fasting lipids due Diabetes m ellitus screening 297133319 Z13.1 annual a1c screening due History of anemia 804984 002 Z86.2 due for iron studies and b12, folate labs History of malignant melanoma of the skin 6326396926 08 Z85.820 hx noted History of malignant basal cell neoplasm of skin 544027333 Z85.828 hx noted History of squamous cell carcinoma of skin 404393956 Z85.828 hx noted Upper resp iratory infection 47751651 J06.9 pt is improving with time. there is no abx necessary at this time. Screening for malignant neoplasm of colon 068392132 Z12.11 refer for colonoscop y screening due Left upper quadrant pain 354329464 R10.12 LUQ tenderness noted on exam today. refer for US abdomen. [id number] [facility] [place] [address] [place] [address] 07/18/2024 15:28:26 07/18/2024 16:29:34 Body mass index 25-29 - overweight 568382362 Z68.28 BMI 28.6 Overweight 045632973 E66 .3 Edema of r ight lower limb 577915215 R60.0 significan t edema RLE up to the groin. send for repeat STAT RLE venous duplex. Lymphedema of right lower limb 6045961952 7657977 I89.0 noted. History of non-Hodgkins lymphoma 015947103 Z85.72 left breast origin. 2017; went to [facility] for tx. Saw Dr. Rachael Charles in [facility], and she was released, just yearly labs. with hx noted and acute presentati on of RLE edema we will refer for CT scan A/P w/c to evaluate in the entire a/p cavity. her ovaries are intact. Long-term drug therapy 546209519 Z79.899 pt requests her magnesium lab Health Concerns Section Related Observation LastModified by Organization Detai ls LastModified Time None Recorded Concern Status LastModified by Organization Details LastModified Time None Recorded Advance Directives Directive Y: Payers Encounter Date Sequence Insurance Name Policy Number Policy Hernandez Covered Member ID Hernandez Member ID Guarantor Name 11/23/2023 1 [facility] Tiffanie Guardado [id number] HAYLEY Guardado 07/03/2024 1 [facility] Tiffanie Guardado [id number] HAYLEY Guardado 07/18/2024 1 [facility]) Tiffanie Guardado [id number] HAYLEY Guardado Notes Date Note Type Note Provider Name and Address Organization Details Recorded Time 11/23/2023 text/html pt. states that she would like to discuss her heels states that it been about 6 mo that she has been having troubles with them states that she has tried cream etc for them states they haven't gotten better pt, hasn't seen a freight loading supervisor either. Also states that she also has a spot on her scalp would like it to be looked at pt. does see a derm. pt. states that when she coughs she gets a headache from the cough states she isn't worried about the cough but she is worried about the headache states that she notices that she feels pressure in the right eye. it is not going away and headaches with every cough or sneeze type action. no vision changes. no falling or balance issues. no nausea or vomiting. Pt. has gotten an antibiotic from her uti prescribed by urologist would also like to have her iron labs checked RADHA Koo Attn: Accounting,[address] [place], [id number], [facility] 11/30/2023 22:32:18 07/03/2024 text/html Upper Respirator y SymptomsReported bypatient.Notes:Pt. states that she isn't coughing up as much yellow/green phlegm any more, NO Wheezing/ no chest pains, Some sore throat from coughing, Front pressure headache/ ears does feel watery/wet but no drainage/ Some fatigue History of non-Hodgkin's lymphoma patient. She is due for some updated labs and she would like to have her iron levels checked with a history of anemia. Patient also reports history of melanoma of the skin, basal cell of the skin and squamous cell of the skin. RADHA Koo Attn: Accounting,[address] [address], [place], [address], [facility] 07/16/2024 14:36:48 07/18/2024 text/html EdemaReported bypatient.Quality:legs do not swell equally; RLE only edema Severity:moderate Duration:acute Onset/Timing:abrupt onset; started 7 days ago Context:no prior history of edema; no prior history of deep vein thrombosis; no new medications; normal salt intake; no recent travel Modifying Factors:nothing gives relief Associated Symptoms:no shortness of breath; no shortness of breath during exertion; no nocturia; no cough; no orthopnea; no paroxysmal nocturnal dyspnea (PND); no chest pain; no palpitations;swelling in lower legs only RADHA Koo Attn: Accounting,[address] [place], [address], [facility] 07/19/2024 13:19:56 OBGyn Episode No OBEpisode recorded.
--- NOTE | 2024-08-09 01:01 | P.TS_ITS ---
Transfer Discharge Sum: Prov Provider Date of admission: 08/06/24 16:00 Primary care physician: Lauren Prater, PA-C Admitting clinician: Steffi Horvath MD Attending physician on admission: Steffi Horvath Consults: 08/06/24 14:32 Consult to Physician Routine Comment: Consulting Provider: Alex Mathew Reason for consultation: Pulmonary embolism, hemodynamic instability Has provider been notified: Yes Attending physician on discharge: Steffi Horvath Discharging clinician: Corinne Mclean Anticipated date of transfer: 08/07/24 Receiving physician/facility: [facility] Accepting MD: Pedro JERRY DS: Admitting Diagnosis Discharge Date 08/07/24 Admitting Diagnosis Obstructive cardiovascular shock A pulmonary embolism, bilateral Acute cor pulmonale I will Elevated troponin Syncope Hypokalemia DS: Discharge Diagnosis Discharge Diagnosis Plan Discharge diagnosis: Obstructive cardiovascular shock A pulmonary embolism, bilateral Acute cor pulmonale I will Bacteremia Elevated troponin Syncope Hypokalemia Transfer Discharge Sum: Med Medications Active and Home Medications: Home Medications ascorbate calcium (vitamin C) 500 mg tablet 500 mg PO DAILY 04/07/21 [History Confirmed 08/06/24] cholecalciferol (vitamin D3) 125 mcg (5,000 unit) capsule 125 mcg PO DAILY 04/07/21 [History Confirmed 08/06/24] turmeric 100 mg-beatriz 150 mg-olive 50 mg-oreg 150 mg-capryl capsule cap PO 04/07/21 [History Confirmed 04/07/21] allopurinol 300 mg tablet mg 08/06/24 [History] Transfer Discharge Sum: Hosp Hospital Course Hospital course: 59 y/o F presents here with syncope with PMH of B-cell lymphoma (2017, [facility] in [place]). The patient presents here from home via EMS for further evaluation of syncope. The patient presented to the emergency department on 08/05/2024. The patient had 3 episodes of lightheadedness and shortness of breath. She initially contributed symptoms to dehydration and lack of food. She had been fasting for a few days, would go 24-36 hours and would then eat a small meal and repeat the cycle. Fast was an attempt to detox. Patient used the restroom. When she stood up she became dizzy and lightheaded. Patient then had a syncopal episode. Patient's heard a loud thump and upon his arrival she was still unconscious. He reports that she tried to wake up but would only have brief periods of consciousness. He estimates this lasted for approximately 30 minutes. Post-syncope she had an episode of nausea and vomiting x1. EMS was called by the patient's . The patient had a 2nd syncopal episode upon arrival to the emergency department. She was found to be profoundly hypotensive, 57/30. Patient reports she has had 3 flights in June. After these flights she noted her right lower extremity was slightly swollen. Denies tobacco use, hormone use, control, or recent surgeries. No previously known cancer to patient beyond her history of lymphoma. Currently following at [facility]. She was aware she had a mass in her pelvis and had previously undergone a biopsy that was inconclusive. Patient was scheduled to have an outpatient biopsy today, however due to current admission she was unable to. The patient is currently post-menopausal, denies any abnormal vaginal bleeding. Denies abdominal pain, unintentional weight loss, or night sweats. She reports family history of cancer: mother had thyroid cancer, father had colon cancer. Initial VS at presentation: 96.8? F, HR 136, R 28, 57/30, and 86% on room air. Now 98% on 3L NC. ED workup showed: WBC 12.7, no anemia, INR 1.5, PTT 37.9, lactic 7.1 (repeat 5.1), creatinine 1.02 and GFR 55 (no previous available for comparison), BNP 640, initial troponin 0.575 (repeat 0.743), AST 88, ALT 48, potassium 2.8. UA was cloudy with 3+ protein, 11-20 RBC, 11-20 WBC, no epithelial cells, rare bacteria. Viral PCR negative. CXR showed no focal infiltrate or effusion. Head CT showed no acute intracranial hemorrhage or suspicious mass effect. CTA of the chest/abdomen/pelvis showed bilateral pulmonary emboli with significant right heart strain, 11 cm likely necrotic mass within the right hemipelvis, significant retroperitoneal and mesenteric lymphadenopathy, periportal edema with venous congestion in the mesentery, and no real foci of fluid and attenuation within the liver. US of the RLE showed no DVT, however the great saphenous vein is noncompressible suggestive of thrombosis. Post admission, after lengthy discussion with the patient and/or family members she elected to pursue possible transfer to additional facilities. Requested starting with [facility], [facility] had CV[facility] bed available. Time Spent with Patient Time attestation: Total time spent providing and/or coordinating transfer services: 45 mins Total time spent: Greater than 30 minutes Exam Const: General: comfortable and no acute distress Other: , female, nontoxic appearance HENMT: Face/Nose/Sinus: Normal nares present Mouth: Yes moist mucous membranes Eyes: General: appearance normal, both eyes and all related structures Sclera: sclerae normal Pupils: Equal, round and reactive pupils present EOM: EOMs intact bilaterally Resp: Effort & Inspection: normal respiratory effort Auscultation: clear to auscultation bilaterally Cardio: Rate: regular rate Rhythm: regular rhythm Other: Loud 2nd heart sound. GI: Other: Abdomen soft, nondistended, nontender. Normoactive bowel sounds in all quadrants. Skin: General skin exam: normal color and no rashes or lesions noted Wounds: no wounds Neuro: Speech: normal speech Motor exam (neuro): 5/5 motor strength present throughout Sensory Exam: normal sensation Other: A&O x4 Extrem: Other: 1+ edema to RLE w/trace pitting. No abn ormalities to left lower extremity. Psych: Mental Status: mental status grossly normal Affect: Anxious affect present Other: Good insight and judgment, pleasant DS: Data Data Completed and Pending Labs on day of discharge: Preliminary micro results at discharge 08/05/24 18:35 Blood Culture - Preliminary Blood Staphylococcus capitis 08/05/24 18:35 Blood Culture - Preliminary Blood Staphylococcus capitis Additional Comments Additional comments: The patient was discharged in stable condition.
== END 2024-08-07 04:00 | disposition short-term general hospital (02) | DRG 175 ==
LOC: ANHED 21:37 → ANHICU 08-06 15:27
PROVIDERS: Emergency Medicine; Internal Medicine; Admitting Provider Internal Medicine; Emergency Provider Emergency Medicine; PCP Physician Assistant; Visit Provider Student in an Organized Health Care Education/Training Program
DX: I26.09 Other pulmonary embolism with acute cor pulmonale (principal); R57.8 Other shock; C85.10 Unspecified B-cell lymphoma, unspecified site; R78.81 Bacteremia; R55 Syncope and collapse; R79.89 Other specified abnormal findings of blood chemistry; E55.9 Vitamin D deficiency, unspecified; K90.0 Celiac disease; Z20.822 Contact with and (suspected) exposure to COVID-19; Z80.0 Family history of malignant neoplasm of digestive organs; Z80.8 Family history of malignant neoplasm of other organs or systems
CPT/HCPCS: 36415; 36556; 70450; 71045; 71275; 74177; 80053; 81001; 83605; 83690; 83735; 83880; 84145; 84484; 85025; 85055; 85610; 85730; 86850; 86900; 86901; 87040; 87086; 87181; 87637; 87641; 93005; 93306; 93971; 96361; 96365; 96366; 96374; 96375; 96376; 99291; A9270; C1751; G0378; J1644; J2185; J2405; J3370; J3480; J7030; Q9967

== ENCOUNTER 2024-08-27 08:42 | Outpatient (CLI) | payer OTHER, SELFPAY ==
--- NOTE | ~2024-08-27 | US_ITS ---
EXAMINATION: US venous doppler LE RT DATE: 08/27/2024 09:08 INDICATION: Right lower limb pain. TECHNIQUE: Grayscale ultrasound images without and with compression and Doppler ultrasound images of the right lower extremity veins were obtained. COMPARISON: Ultrasound 07/18/2024 FINDINGS: The visualized portions of the right femoral vein, popliteal vein, peroneal veins, and posterior tibi al veins are patent. There is thrombus in right common femoral vein, profunda femoral vein, and great er saphenous vein. IMPRESSION: 1. Deep vein thrombosis involving right common femoral vein and profunda femoral vein. 2. Superficial vein thrombosis involving right greater saphenous vein. Reviewed, dictated and finalized at location A. PRESS LOADER IMPRESSION: 1. Deep vein thrombosis involving right common femoral vein and profunda femor al vein. 2. Superficial vein thrombosis involving right greater saphenous vein.
== END 2024-08-27 08:43 | disposition home or self-care (01) ==
PROVIDERS: Visit Provider Physician Assistant
DX: I82.411 Acute embolism and thrombosis of right femoral vein (principal); I82.811 Embolism and thrombosis of superficial veins of right lower extremity
CPT/HCPCS: 93971

== ENCOUNTER 2024-12-30 14:29 | Outpatient (CLI) | payer OTHER, SELFPAY ==
--- NOTE | ~2024-12-30 | US_ITS ---
EXAMINATION: US venous doppler LE DATE: 12/30/2024 15:11 INDICATION: Previous DVT. Follow-up TECHNIQUE: Grayscale ultrasound images without and with compression and Doppler ultrasound images of the bilateral lower extremity veins were obtained. COMPARISON: 08/27/2024 and dating back to 07/18/2024 FINDINGS: The visualized portions of right common femoral vein, profunda (deep) femoral vein, femoral vein, pop liteal vein, peroneal veins, posterior tibial veins, and greater saphenous vein outflow are patent. I ntimal thickening is detected within the right common femoral vein, greater saphenous vein and femora l vein suggesting prior deep venous thrombosis. The visualized portions of left common femoral vein, profunda femoral vein, femoral vein, popliteal v ein, peroneal veins, posterior tibial veins, and greater saphenous vein outflow are patent. IMPRESSION: 1. No deep venous thrombosis. Reviewed, dictated and finalized at location A.
== END 2024-12-30 14:30 | disposition home or self-care (01) ==
LOC: MICIMG 14:30
PROVIDERS: PCP Physician Assistant
DX: Z86.711 Personal history of pulmonary embolism (principal)
CPT/HCPCS: 93970